=== PATIENT | male | born 1950 | race Caucasian/White ===

== ENCOUNTER 2017-01-14 08:09 | Emergency (ER) | payer BC, OTHER ==
[~2017-01-14] VITALS: Ht 172.7 cm; Wt 76.2 kg
[2017-01-14] VITALS (7 sets, daily range): BP systolic 111–128; BP diastolic 55–62; PULSE 66–82; TEMP 37.1–37.4; O2SAT 93–98; Ht 172.7 cm; Wt 76.2 kg
[~2017-01-14 08:09] MED LIST: ASPCH81X PO; FLUO0.0543 TOP; IBUP-1050 PO; LEVO50TA PO; LISI-461 PO; METO25TA3 PO; ROSU20TA PO; SILD100T PO
[2017-01-14] MEDS ORDERED: LEVO25TA5 PO (08:33)
[2017-01-14] MEDS ORDERED: TPRSR/25 PO (08:33)
[2017-01-14 08:56] LABS: BASO % 0.2 %; BASO ABS # 0.01 K/uL (0-0.2); COMPLETE YES; EOS % 0.9 %; HEMATOCRIT 48.1 % (42-52); IG% 0.2 %; LYMPH % 8.5 %; LYMPH ABS # 0.55 K/uL (1.2-3.4); MEAN CELL VOLUME 85.6 fL (80-100); MEAN CORPUSCULAR HEMOGLOBIN 29.7 pg (25-34); MEAN CORPUSCULAR HGB CONC 34.7 g/dl (32-36); MEAN PLATELET VOLUME 9.4 fL (7.4-10.4); MONO % 10.6 %; NEUT % 79.6 %; PLATELET COUNT 235 K/uL (130-400); RED BLOOD COUNT 5.62 M/uL (4.7-6.1)
[2017-01-14 09:07] LABS: MANUAL MICROSCOPIC REQUIRED? NO; URINE APPEARANCE CLEAR (CLEAR); URINE BILIRUBIN NEG (NEG); URINE COLOR YELLOW; URINE NITRITE NEG (NEG); UROBILINOGEN NEG (NEG)
[2017-01-14 09:07] LABS: ALT/SGPT 28 U/L (12-78); BLOOD UREA NITROGEN 9 mg/dl (7-18); BUN/CREATININE RATIO 10.7 (10-20); CALCIUM 9.6 mg/dl (8.5-10.1); CARBON DIOXIDE 29 mmol/L (21-32); CHLORIDE 101 mmol/L (98-107); CREATININE 0.85 mg/dl (0.60-1.40); GLUCOSE 102 mg/dl (70-99); POTASSIUM 3.8 mmol/L (3.5-5.1); SODIUM 140 mmol/L (136-145)
[2017-01-14 09:08] LABS: REVIEW REQ? NO
[2017-01-14 09:10] LABS: ZZUR CULT IF INDIC CLEAN CATCH NO
[2017-01-14 09:12] LABS: ALB/GLOB RATIO 1.1 (0.9-2); ALKALINE PHOSPHATASE 83 U/L (45-117); AST/SGOT 22 U/L (15-37)
--- NOTE | 2017-01-14 09:12 | EMERGENCY ROOM VISIT NOTE ---
History First contact with patient: 08:15 Chief Complaint: CHEST PAIN Stated Complaint: CHEST PAIN Nursing Triage Summary: pt c/o burning in chest up to throat area. pt rteports hx of bypass surgery 2 years ago. feels sob and tired sx started yestereday. pt heaved a few times last night. pt reports he has cough he does not normally have nonproductive dry cough History of Present Illness The patient is a 67 year old male who presents to the Emergency Room via ALS ambulance with complaints of chest pain. The patient states the discomfort woke him at 3 AM. He states he felt a burning sensation in the center of his chest. He states he has felt generalized weakness and he has felt short of breath. He also has a nonproductive cough. He denies any abdominal pain, nausea, vomiting, numbness, tingling. The patient does have a history of CABG 2 years ago. He has not had a catheterization since then but has had normal stress test. The patient was given nitroglycerin and aspirin in the ambulance. His pain did improve. Review of Systems A 10 system review of systems was completed with positives and pertinent negatives listed in the HPI. Past Medical/Surgical History Medical Problems: (1) Chest pain (2) Chest tightness or pressure (3) Coronary artery disease (4) Polymyalgia rheumatica (5) Syncope Surgical Problems: (1) Hx of CABG Family History FH: CAD (coronary artery disease) Social History Smoking Status: Never Smoker Alcohol Use: occasionally Drug Use: none Marital Status: Housing Status: lives with family Occupation Status: employed Current/Historical Medications Scheduled Aspirin (Aspirin Chewable), 81 MG PO QPM Levothyroxine Sodium (Levothyroxine Sodium), 1 TAB PO QPM Lisinopril (Zestril), 5 MG PO QAM Metoprolol Succinate (Metoprolol Succinate ER), 1 TAB PO QAM Prednisone (Prednisone), 5 MG PO DAILY Rosuvastatin Calcium (Crestor), 1 TAB PO QPM Allergies Coded Allergies: No Known Allergies (Unverified , 03/16/15) Physical Exam Vital Signs Date Time Temp Pulse Resp B/P Pulse Ox O2 Delivery O2 Flow Rate FiO2 01/14/17 12:52 86 16 110/60 98 01/14/17 11:55 95 Room Air 01/14/17 11:04 74 14 112/60 95 01/14/17 09:50 76 18 124/59 01/14/17 08:46 86 01/14/17 08:15 97 Room Air 01/14/17 08:15 37.1 89 18 109/62 97 Room Air Physical Exam VITALS: Vitals are noted on the nurse's note and reviewed by myself. Vital signs stable. GENERAL: This is a 67 year old male, in no acute distress, nondiaphoretic, well- developed well-nourished. SKIN: The skin was without rashes, erythema, edema, or bruising. There is no tenting of the skin. Capillary reflex less than 2 seconds. HEAD: Normocephalic atraumatic. EARS: The external ears are normal in appearance. EYES: Pupils equal round and reactive to light and accommodation. Conjunctivae without injection, sclerae without icterus. Extraocular movements intact. NOSE: Patent, turbinates without inflammation or discharge. MOUTH: Mucous membranes moist. Tonsils are not enlarged. Pharynx without erythema or exudate. Uvula midline. Airway patent. Tongue does not deviate. NECK: Supple without nuchal rigidity. No lymphadenopathy. No thyromegaly. Cervical spine is nontender. No JVD. HEART: Regular rate and rhythm without murmurs gallops or rubs. LUNGS: Clear to auscultation bilaterally without wheezes, rales or rhonchi. No retractions or accessory muscle use. ABDOMEN: Positive bowel sounds x 4. Soft, nontender, without masses or organomegaly. MUSCULOSKELETAL: No muscle atrophy, erythema, or edema noted. Full range of motion in all extremities. Normal gait. Strength 5/5 throughout. NEURO: Patient was alert and oriented to person place and time. No focal neurological deficits. Medical Decision & Procedures ER Provider Diagnostic Interpretation: [~ rep ct add3]] CHEST CTA for PULMONARY ARTERIES CT DOSE: 292.47 mGy.cm HISTORY: Chest pain dyspnea TECHNIQUE: Multiaxial CT images of the chest were performed following the intravenous administration of contrast to evaluate the pulmonary arteries. Maximal intensity projection images were also obtained. COMPARISON STUDY: None. FINDINGS: There is a normal caliber thoracic aorta with no evidence for dissection. There is no evidence for pulmonary embolus. No pleural effusions. No pneumothorax. The liver and spleen are unremarkable. No mediastinal or hilar lymphadenopathy. The central airways are patent. The lungs are clear. Prior median sternotomy. IMPRESSION: No evidence for pulmonary embolus. . Lungs are clear. CHEST ONE VIEW PORTABLE CLINICAL HISTORY: chest pain dyspnea COMPARISON STUDY: 10/16/2015 FINDINGS: Prior median sternotomy. No evidence for cardiac enlargement. Diaphragms smooth. Lungs are clear. IMPRESSION: No acute process. Laboratory Results 01/14/17 07:47 Red Blood Count 5.62, Mean Corpuscular Volume 85.6, Mean Corpuscular Hemoglobin 29.7, Mean Corpuscular Hemoglobin Concent 34.7, Mean Platelet Volume 9.4, Neutrophils (%) (Auto) 79.6, Lymphocytes (%) (Auto) 8.5, Monocytes (%) (Auto) 10.6, Eosinophils (%) (Auto) 0.9, Basophils (%) (Auto) 0.2, Neutrophils # (Auto ) 5.18, Lymphocytes # (Auto) 0.55, Monocytes # (Auto) 0.69, Eosinophils # (Auto ) 0.06, Basophils # (Auto) 0.01 01/14/17 07:47 Test 01/14/17 07:47 01/14/17 08:26 01/14/17 09:00 White Blood Count 6.50 K/uL (4.8-10.8) Red Blood Count 5.62 M/uL (4.7-6.1) Hemoglobin 16.7 g/dL (14.0-18.0) Hematocrit 48.1 % (42-52) Mean Corpuscular Volume 85.6 fL (80-100) Mean Corpuscular Hemoglobin 29.7 pg (25-34) Mean Corpuscular Hemoglobin Concent 34.7 g/dl (32-36) Platelet Count 235 K/uL (130-400) Mean Platelet Volume 9.4 fL (7.4-10.4) Neutrophils (%) (Auto) 79.6 % Lymphocytes (%) (Auto) 8.5 % Monocytes (%) (Auto) 10.6 % Eosinophils (%) (Auto) 0.9 % Basophils (%) (Auto) 0.2 % Neutrophils # (Auto) 5.18 K/uL (1.4-6.5) Lymphocytes # (Auto) 0.55 K/uL (1.2-3.4) Monocytes # (Auto) 0.69 K/uL (0.11-0.59) Eosinophils # (Auto) 0.06 K/uL (0-0.5) Basophils # (Auto) 0.01 K/uL (0-0.2) RDW Standard Deviation 42.0 fL (36.4-46.3) RDW Coefficient of Variation 13.3 % (11.5-14.5) Immature Granulocyte % (Auto) 0.2 % Immature Granulocyte # (Auto) 0.01 K/uL (0.00-0.02) Prothrombin Time 10.4 SECONDS (9.0-12.0) Prothromb Time International Ratio 1.0 (0.9-1.1) Activated Partial Thromboplast Time 25.7 SECONDS (21.0-31.0) Partial Thromboplastin Ratio 1.0 D-Dimer 790 ug/L FEU (0-500) Anion Gap 10.0 mmol/L (3-11) Est Creatinine Clear Calc Drug Dose 81.6 ml/min Estimated GFR () 104.5 Estimated GFR (Non- 90.2 BUN/Creatinine Ratio 10.7 (10-20) Calcium Level 9.6 mg/dl (8.5-10.1) Total Bilirubin 1.7 mg/dl (0.2-1) Aspartate Amino Transf (AST/SGOT) 22 U/L (15-37) Alanine Aminotransferase (ALT/SGPT) 28 U/L (12-78) Alkaline Phosphatase 83 U/L (45-117) Total Protein 8.2 gm/dl (6.4-8.2) Albumin 4.2 gm/dl (3.4-5.0) Globulin 4.0 gm/dl (2.5-4.0) Albumin/Globulin Ratio 1.1 (0.9-2) Lipase 178 U/L (73-393) Influenza Type A Antigen Neg for Influ A (NEG) Influenza Type B Antigen Neg for Influ B (NEG) Urine Color YELLOW Urine Appearance CLEAR (CLEAR) Urine pH 7.0 (4.5-7.5) Urine Specific [place] 1.020 (1.000-1.030) Urine Protein NEG (NEG) Urine Glucose (UA) NEG (NEG) Urine Ketones TRACE (NEG) Urine Occult Blood NEG (NEG) Urine Nitrite NEG (NEG) Urine Bilirubin NEG (NEG) Urine Urobilinogen NEG (NEG) Urine Leukocyte Esterase NEG (NEG) Procedure 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 They maintained a normal sinus rhythm without ectopy. ECG Indication: chest pain Rate (beats per minute): 87 Rhythm: normal sinus Findings: nonspecific-ST abn Change: no significant change ED Course The patient was seen and examined. Previous visits were reviewed. The patient does not have a fever or leukocytosis. He does not have any significant electrolyte abnormalities. Troponin is not elevated. Lipase is not elevated. INR is 1.0. D-dimer was elevated. Urinalysis was negative. Influenza was negative. Given the shortness of breath, chest discomfort and elevated d-dimer, a CTA of the chest was obtained and was negative for pulmonary embolus Chest x-ray does not reveal any acute abnormality The patient presents to the emergency department with chest discomfort which she describes as burning in nature and woke him from sleep. The pain was relieved with nitroglycerin in route with ALS ambulance. The patient does have a history of CABG 2 years ago. He has had a normal stress test since then. The patient does have multiple risk factors. He would benefit from further evaluation and management in the hospital. I discussed the case with the [facility] hospitalist service and they will evaluate the patient. The patient was also seen and examined by who agrees with the assessment and treatment plan. Medical Decision DIFFERENTIAL DIAGNOSIS: Aortic dissection, myocarditis, pericarditis, cervical disc disease, costochondritis, herpes zoster, rib fracture, pleuritis, pneumonia , pulmonary embolus, tension pneumothorax, anxiety disorder, somatoform disorder , choledocholithiasis, status, esophagitis, esophageal spasm, esophageal reflux , esophageal rupture, pancreatitis, peptic ulcer disease, cardiac ischemia, ST elevation AL, acute coronary syndrome, arrhythmia, coronary artery vasospasm. vavular heart disease, coronary artery disease, among others. Impression Primary Impression: Substernal precordial chest pain Departure Information Referrals Ilana Munguia DO (PCP) Patient Instructions My [facility]
--- NOTE | 2017-01-14 09:17 | DIAGNOSTIC IMAGING REPORT ---
CHEST ONE VIEW PORTABLE CLINICAL HISTORY: chest pain dyspnea COMPARISON STUDY: 10/16/2015 FINDINGS: Prior median sternotomy. No evidence for cardiac enlargement. Diaphragms smooth. Lungs are clear. IMPRESSION: No acute process. Electronically signed by: Rigoberto Grayson M.D. 01/14/2017 9:16 AM Dictated Date/Time: 01/14/2017 9:16 AM
[2017-01-14 09:41] LABS: PROTHROMBIN TIME (PATIENT) 10.4 SECONDS (9.0-12.0)
[2017-01-14] MEDS ORDERED: OPTIRAY 320 IV PRN (10:00)
--- NOTE | 2017-01-14 11:01 | DIAGNOSTIC IMAGING REPORT ---
CHEST CTA for PULMONARY ARTERIES CT DOSE: 292.47 mGy.cm HISTORY: Chest pain dyspnea TECHNIQUE: Multiaxial CT images of the chest were performed following the intravenous administration of contrast to evaluate the pulmonary arteries. Maximal intensity projection images were also obtained. COMPARISON STUDY: None. FINDINGS: There is a normal caliber thoracic aorta with no evidence for dissection. There is no evidence for pulmonary embolus. No pleural effusions. No pneumothorax. The liver and spleen are unremarkable. No mediastinal or hilar lymphadenopathy. The central airways are patent. The lungs are clear. Prior median sternotomy. IMPRESSION: No evidence for pulmonary embolus. . Lungs are clear. Electronically signed by: Rigoberto Graysno M.D. 01/14/2017 10:59 AM Dictated Date/Time: 01/14/2017 10:56 AM
[2017-01-14] MEDS ORDERED: POLYETHYLENE (MIRALAX) 17 GM PACK PO PRN (13:15)
[2017-01-14] MEDS ORDERED: ACETAMINOPHEN 325 MG TAB PO PRN (13:15)
[2017-01-14] MEDS ORDERED: ONDANSETRON INJ 2 MG/ML 2 ML VIAL IV PRN (13:15)
[2017-01-14] MEDS ORDERED: MAGNESIUM HYDROXIDE SUSP 30 ML UDC PO PRN (13:15)
[2017-01-14] MEDS ORDERED: ALUMINUM/MAGNESIUM/SIMETH (MAALOX MAX) 30 ML UDC PO PRN (13:15)
[2017-01-14] MEDS ORDERED: NITROGLYCERIN 0.4 MG SL PER TAB CHARGE SL PRN (13:15)
[2017-01-14 15:49] LABS: CKMB/CK RATIO 1.4 (0-3.0)
--- NOTE | 2017-01-14 15:52 | EMERGENCY ROOM VISIT NOTE ---
ED Visit Note First contact with patient: 08:15 I have personally seen and evaluated the patient with the PA. I agree with the diagnosis and management decisions and have been personally involved in the case. Please see Melisa Cesar PA-C's notes for further details of the history, physical and visit.
[2017-01-14] MEDS ORDERED: IV FLUIDS COMPLETED PRN (16:00)
--- NOTE | 2017-01-14 16:14 | History and Physical ---
History & Physical Date & Time of Service: Jan 14, 2017 at 16:09 Chief Complaint: Chest Pain Primary Care Physician: Ilana Munguia DO History of Present Illness Source: patient, family ( and daughters x 2) Mr. Perrin is a 67 y/o male with PMHx of CAD S/P CABG x 3 (2014), Hypothyroidism , and Polymyalgia Rheumatica who presents to the ED complaining of sudden onset CP that started at 0300. Patient was asleep in the discomfort woke him at 0300. The chest pain is located in the center of his chest and describes the sensation as burning and hot. He states this pain also radiated up into his neck. With this discomfort he does express some intermittent shortness of breath. He does not report any aggravating factors. Symptoms completely resolved with nitroglycerin and ASA given by EMS prior to arrival. Associated generalized weakness, nonproductive cough, and dry heaves overnight. Reports some diaphoresis last night which has resolved. Patient states that he normally does not have issues with acid reflux. He denies fever/chills, nausea/vomiting , abdominal pain, dysuria, constipation/diarrhea, or melena/hematochezia. Last stress test in September 2015 that did not show ischemic changes but mentions possible hypokinesis to akinesis of the mid inferior wall at rest and with stress. Patient states he normally does not have anginal pain. Patient is currently being treated for PMR and thinks some of this weakness could be related to that. However his presenting symptoms prior to CABG was that of fatigue largely with exertion. He has not undergone further catheterization since his CABG procedure. In the ED, he is afebrile without leukocytosis. EKG with normal sinus rhythm with Q waves in the anterior leads which have been present on previous EKGs. Initial troponin are negative. CTA of the chest without evidence of pulmonary embolism and lungs are clear without consolidation. Patient will be admitted to telemetry for CP rule out. Cardiology will be consult for possible need for stress testing versus need for catheterization in the future. Family History FH: CAD (coronary artery disease) FATHER Hypertension DAUGHTER Multiple Sclerosis SISTER Social History Smoking Status: Never Smoker Alcohol Use: socially Drug Use: none Marital Status: Housing status: lives with family Occupational Status: retired Multi-Drug Resistant Organisms History of MDRO: No Allergies Coded Allergies: No Known Allergies (Unverified , 03/16/15) Home Medications Scheduled Aspirin (Aspirin Chewable), 81 MG PO QPM Levothyroxine Sodium (Levothyroxine Sodium), 1 TAB PO QPM Lisinopril (Zestril), 5 MG PO QAM Metoprolol Succinate (Metoprolol Succinate ER), 1 TAB PO QAM Prednisone (Prednisone), 5 MG PO DAILY Rosuvastatin Calcium (Crestor), 1 TAB PO QPM Review of Systems Constitutional: + fatigue, + sweats (last night (resolved)), No chills, No fever Eyes: No worsening of vision ENT: No nasal symptoms, No sore throat, No trouble swallowing Respiratory: + shortness of breath (associated with CP (resolved)), No cough Cardiovascular: + chest pain ("burning" "hot" (resolved since NTG)), No edema, No palpitations Abdomen: No constipation, No diarrhea, No nausea, No pain, No vomiting Musculoskeletal: No calf pain, No swelling Genitourinary - Male: No dysuria Neurologic: No vertigo Hematologic / Lymphatic: No abnormal bleeding/bruising, No clotting problems Integumentary: No rash Physical Exam Vital Signs Date Time Temp Pulse Resp B/P Pulse Ox O2 Delivery O2 Flow Rate FiO2 01/14/17 15:20 72 18 128/60 97 Room Air 01/14/17 14:32 37.1 82 119/62 98 Room Air 01/14/17 14:20 80 16 121/67 98 01/14/17 12:52 86 16 110/60 98 01/14/17 11:55 95 Room Air 01/14/17 11:04 74 14 112/60 95 01/14/17 09:50 76 18 124/59 01/14/17 08:46 86 01/14/17 08:15 97 Room Air 01/14/17 08:15 37.1 89 18 109/62 97 Room Air General Appearance: WD/WN, no apparent distress Head: normocephalic, atraumatic Eyes: PERRL, sclerae normal ENT: hearing grossly normal Neck: supple, no JVD, trachea midline Respiratory/Chest: lungs clear, normal breath sounds, no respiratory distress, no accessory muscle use Cardiovascular: regular rate, rhythm, no gallop, no murmur Abdomen/GI: normal bowel sounds, non tender, soft Back: normal inspection, no CVA tenderness Extremities/Musculoskelatal: no calf tenderness, no pedal edema Neurologic/Psych: alert, oriented x 3 Skin: normal color, warm/dry Diagnostics Laboratory Results Results Past 24 Hours Test 01/14/17 07:47 01/14/17 08:26 01/14/17 09:00 01/14/17 15:04 Range/Units White Blood Count 6.50 4.8-10.8 K/uL Red Blood Count 5.62 4.7-6.1 M/uL Hemoglobin 16.7 14.0-18.0 g/dL Hematocrit 48.1 42-52 % Mean Corpuscular Volume 85.6 80-100 fL Mean Corpuscular Hemoglobin 29.7 25-34 pg Mean Corpuscular Hemoglobin Concent 34.7 32-36 g/dl Platelet Count 235 130-400 K/uL Mean Platelet Volume 9.4 7.4-10.4 fL Neutrophils (%) (Auto) 79.6 % Lymphocytes (%) (Auto) 8.5 % Monocytes (%) (Auto) 10.6 % Eosinophils (%) (Auto) 0.9 % Basophils (%) (Auto) 0.2 % Neutrophils # (Auto) 5.18 1.4-6.5 K/uL Lymphocytes # (Auto) 0.55 1.2-3.4 K/uL Monocytes # (Auto) 0.69 0.11-0.59 K/uL Eosinophils # (Auto) 0.06 0-0.5 K/uL Basophils # (Auto) 0.01 0-0.2 K/uL RDW Standard Deviation 42.0 36.4-46.3 fL RDW Coefficient of Variation 13.3 11.5-14.5 % Immature Granulocyte % (Auto) 0.2 % Immature Granulocyte # (Auto) 0.01 0.00-0.02 K/uL Prothrombin Time 10.4 9.0-12.0 SECONDS Prothromb Time International Ratio 1.0 0.9-1.1 Activated Partial Thromboplast Time 25.7 21.0-31.0 SECONDS Partial Thromboplastin Ratio 1.0 D-Dimer 790 0-500 ug/L FEU Sodium Level 140 136-145 mmol/L Potassium Level 3.8 3.5-5.1 mmol/L Chloride Level 101 98-107 mmol/L Carbon Dioxide Level 29 21-32 mmol/L Anion Gap 10.0 3-11 mmol/L Blood Urea Nitrogen 9 7-18 mg/dl Creatinine 0.85 0.60-1.40 mg/dl Est Creatinine Clear Calc Drug Dose 81.6 ml/min Estimated GFR () 104.5 Estimated GFR (Non- 90.2 BUN/Creatinine Ratio 10.7 10-20 Random Glucose 102 70-99 mg/dl Calcium Level 9.6 8.5-10.1 mg/dl Total Bilirubin 1.7 0.2-1 mg/dl Aspartate Amino Transf (AST/SGOT) 22 15-37 U/L Alanine Aminotransferase (ALT/SGPT) 28 12-78 U/L Alkaline Phosphatase 83 45-117 U/L Troponin I < 0.015 < 0.015 0-0.045 ng/ml Total Protein 8.2 6.4-8.2 gm/dl Albumin 4.2 3.4-5.0 gm/dl Globulin 4.0 2.5-4.0 gm/dl Albumin/Globulin Ratio 1.1 0.9-2 Lipase 178 73-393 U/L Influenza Type A Antigen Neg for Influ A NEG Influenza Type B Antigen Neg for Influ B NEG Urine Color YELLOW Urine Appearance CLEAR CLEAR Urine pH 7.0 4.5-7.5 Urine Specific [place] 1.020 1.000-1.030 Urine Protein NEG NEG Urine Glucose (UA) NEG NEG Urine Ketones TRACE NEG Urine Occult Blood NEG NEG Urine Nitrite NEG NEG Urine Bilirubin NEG NEG Urine Urobilinogen NEG NEG Urine Leukocyte Esterase NEG NEG Total Creatine Kinase 42 39-308 U/L Creatine Kinase MB 0.6 0.5-3.6 ng/ml Creatine Kinase MB Ratio 1.4 0-3.0 Diagnostic Radiology CHEST ONE VIEW PORTABLE CLINICAL HISTORY: chest pain dyspnea COMPARISON STUDY: 10/16/2015 FINDINGS: Prior median sternotomy. No evidence for cardiac enlargement. Diaphragms smooth. Lungs are clear. IMPRESSION: No acute process. CHEST CTA for PULMONARY ARTERIES CT DOSE: 292.47 mGy.cm HISTORY: Chest pain dyspnea TECHNIQUE: Multiaxial CT images of the chest were performed following the intravenous administration of contrast to evaluate the pulmonary arteries. Maximal intensity projection images were also obtained. COMPARISON STUDY: None. FINDINGS: There is a normal caliber thoracic aorta with no evidence for dissection. There is no evidence for pulmonary embolus. No pleural effusions. No pneumothorax. The liver and spleen are unremarkable. No mediastinal or hilar lymphadenopathy. The central airways are patent. The lungs are clear. Prior median sternotomy. IMPRESSION: No evidence for pulmonary embolus. . Lungs are clear. EKG Normal sinus rhythm Cannot rule out Anterior infarct , age undetermined Abnormal ECG When compared with ECG of 16-OCT-2015 11:04, No significant change was found Impression Assessment and Plan Mr. Perrin is a 67 y/o male with PMHx of CAD S/P CABG x 3, Hypothyroidism, and Polymyalgia Rheumatica who presents to the ED complaining of sudden onset CP that started at 0300. Chest Pain: GI Component vs Anginal vs ACS - Serial cardiac enzymes - Nitroglycerin 0.4 mg SL PRN - Stress test is ordered - Consult cardiology - follows with Dr. Spencer -- Recommendations for stress testing versus need for catheterization the future -- Prior to CABG patient's only symptom was largely fatigue with exertion - with stress testing confirming LAD ischemia -- Patient with multiple vessel disease with small non-dominant RCA -- Stress test (Sep 2015) - no ischemic changes but findings of possible hypokinesis to akinesis of mid inferior wall at rest and with stress CAD S/P CABG x 3 (2014): - ASA 81 mg daily - Lisinopril 5 mg daily - Metoprolol succinate 25 mg daily - Crestor 20 mg daily Hypothyroidism: - Synthroid 25 mcg daily Polymyalgia Rheumatica: - Prednisone 5 mg daily DVT Prophylaxis: - RAMONA/SCDs - Ambulation Code Status: FULL RESUSCITATION Disposition: Return home likely tomorrow Level of Care Telemetry Advanced Directives Existing Living Will: No Existing Power of Delivery Specialist: No Resuscitation Status FULL RESUSCITATION VTE Prophylaxis VTE Risk Assessment Done? Y/N: Yes Risk Level: Moderate Given or contraindicated: T.E.D. Stockings, SCD's
[2017-01-14] MEDS ORDERED: PRD5 PO (16:36)
--- NOTE | 2017-01-14 16:37 | History and Physical ---
History & Physical Date of Service Jan 14, 2017. History & Physical pt seen and examed, d/w PA about gonzalez points of dignosis and care plan, agreed current management, for details please referral to PA's note S: Was having chest pain this morning, resolved on the way to the hospital after 2 time nitroglycerin, no any chest pain when I see him Review of system otherwise not remarkable O: VS reviewed, stable, pleasant, NAD Lungs: Anterior chest wall has well-healing scar from history of CABG, decreased breathing sound, no respiratory distress, no accessory muscle use Cardiovascular: regular rate, rhythm, no edema, normal peripheral pulses Abdomen / GI: normal bowel sounds, non tender, soft Extremities: no calf tenderness, no pedal edema Neurologic/Psychiatric: alert, normal mood/affect, oriented x 3, CNII-XII intact All labs, images, reviewed 67 year old male with burning sensation in the center of his chest, associated with generalized weakness and he has felt short of breath. history of CABG 2 years ago. He has not had a catheterization since then but has had normal stress test in last September which was negative. Talked to the per diem clerk, check cardiac enzyme troponin 2 set, Will depend on next set of cardiac enzyme and troponin, may consider stress test , or cardiac cath if cardiac enzyme troponin is negative Possible do not need to have another stress test because of his recent stress test was last September which was negative, I start Protonix because of burning sensation and possible GERD
[2017-01-14] MEDS ORDERED: PANTOprazole SOD 40 MG TAB PO ONE (17:00)
--- NOTE | 2017-01-14 18:05 | CARDIOLOGY CONSULTATION ---
DATE OF CONSULTATION: 01/14/2017 REFERRING PHYSICIAN: Marcellus Pruitt MD HISTORY OF PRESENT ILLNESS: Mr. Ras Perrin is a 67-year-old gentleman with a history of coronary artery disease, having previously undergone coronary artery bypass grafting in 2014. The patient stated that earlier this evening at around 3:00 a.m., he was awoken from sleep with a burning sensation in his chest. He is very clear that this was not a pain but more a sense of indigestion. It was associated with a sense of nausea and the patient did have dry heaves for some time after its onset. There was some associated diaphoresis. He did state that at times, he felt somewhat short of breath but not markedly so. The discomfort itself did not seem to radiate and generally involved the precordium and epigastric area. There was only mild associated dizziness which was not progressive in nature. There was no syncope involved. The patient did not report a sense of palpitations or rapid heartbeats during this episode. He had nitroglycerin at home but did not administer any. He did notify EMS after several hours of discomfort. Upon administration of nitroglycerin, the symptoms improved and eventually abated in the Emergency Room of [facility]. He has not had any recurrence of these symptoms since admission. He does recall a sense of chest discomfort described more as a pressure sensation, leading up to his stress testing in 2014. This morning, symptoms were distinct from those present at that time. In general, he is an active individual who is performing routine tasks around his house. He is able to ambulate stairs and walk approximately 2 miles on occasion without limiting symptoms. He has not had to reduce his activity recently due to dyspnea or chest discomfort. PAST MEDICAL HISTORY: 1. Significant for aforementioned coronary artery disease. The patient underwent 3-vessel coronary artery bypass grafting in [facility] in March of 2015. This involved a NICHOLAS to the LAD, saphenous vein graft to an OM1 and a saphenous vein graft to the PDA. 2. Hyperlipidemia. 3. Hypertension. 4. Polymyalgia rheumatica, currently on steroid therapy. PAST SURGICAL HISTORY: Significant for the aforementioned coronary artery bypass grafting. OUTPATIENT MEDICATIONS: Include aspirin, vitamin D supplementation, levothyroxine, lisinopril, metoprolol, rosuvastatin and Viagra on a p.r.n. basis. MEDICAL ALLERGIES: No known medical allergies. FAMILY HISTORY: Significant for premature coronary disease in his father. 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 He is not currently using tobacco. He does drink alcohol on occasion. REVIEW OF SYSTEMS: A complete 10-system review of systems was performed and the pertinent positives are noted in the history of present illness. He does not report any recent constitutional symptoms such as fevers or chills, although he has had some upper respiratory illnesses over the course of the winter. He has not reported any change in his weight. He has not developed any lower extremity edema. He is not aware of any palpitations. He claims to be compliant with his medical therapy. PHYSICAL EXAMINATION: GENERAL: The patient did not appear to have any acute distress. He was pleasant individual who was alert and oriented. His mood and affect appeared normal. He answered all questions appropriately. CURRENT VITAL SIGNS: Include blood pressure 128/60, a pulse of 72. HEENT: Sclerae are anicteric. His pupils are equal and reactive to light and accommodation. Extraocular movements were intact. NECK: Palpation of submandibular region did not reveal any significant lymphadenopathy. The carotids are palpable bilaterally. There are no bruits on auscultation. I do not appreciate any jugular venous distention. Thyroid is not enlarged. LUNGS: Auscultation of both lung arias reveals them to be clear. There were no rales, wheeze or rhonchi. He had good respiratory effort without use of accessory muscles. CARDIAC: Revealed him to be in irregular rhythm. There were no murmurs appreciated on exam. S1, S2 appear to be normal. PMI is not markedly displaced on palpation. ABDOMEN: Soft and nontender. EXTREMITIES: Evaluation of both wrists reveal radial pulses that were equal in intensity. There was no evidence of cyanosis or clubbing. Evaluation of the lower extremities did not reveal any significant peripheral edema. LABORATORY STUDIES: Obtained since admission include a sodium 140, potassium of 3.8, BUN was 9, creatinine was 0.8. Serial cardiac biomarkers are all less than the detectable limit. White cell count was 6.5, hemoglobin was 16.7, platelet count was 235. A 12-lead EKG was obtained at the time of admission, which revealed a sinus rhythm without significant ST or T-wave changes. The patient's medical record was reviewed. He did have a stress echocardiogram subsequent to his bypass surgery in September of 2015. This test did not suggest the presence of any inducible ischemia. ASSESSMENT AND PLAN: Chest pain. This appears to be noncardiac in nature, given the extended duration of his symptoms without elevation in cardiac biomarkers. It is also notable that these symptoms are distinct from those experienced prior to his bypass grafting. The patient is on a good outpatient medical regimen for secondary prevention of recurrent coronary artery disease. At this point, we could consider repeat risk stratification with exercise stress testing or defer that currently, given his good exercise tolerance and absence of exertional symptoms. At this point, there does not seem to be any need for additional medical therapy. I will continue him on his outpatient medical regimen and he could follow up as an outpatient with his primary [facility] we[facility], Dr. Spencer.
[2017-01-14] MEDS ORDERED: ROSUVASTATIN CALCIUM 20 MG TAB PO SCH (21:00)
[2017-01-14] MEDS ORDERED: ASPIRIN 81 MG ECTAB PO SCH (21:00)
[2017-01-15 03:07] VITALS: BP 108/60; PULSE 57; TEMP 36.8; O2SAT 93
[2017-01-15 04:00] VITALS: O2SAT 93
[2017-01-15 05:55] LABS: HEMATOCRIT 41.2 % (42-52); MEAN CELL VOLUME 86.9 fL (80-100); MEAN CORPUSCULAR HGB CONC 34.5 g/dl (32-36); MEAN PLATELET VOLUME 9.3 fL (7.4-10.4); PLATELET COUNT 169 K/uL (130-400); RED BLOOD COUNT 4.74 M/uL (4.7-6.1); WHITE BLOOD COUNT 4.17 K/uL (4.8-10.8)
[2017-01-15] MEDS ORDERED: LEVOTHYROXINE 25 MCG TAB PO SCH (06:00)
[2017-01-15 06:29] LABS: BUN/CREATININE RATIO 12.8 (10-20); CALCIUM 8.2 mg/dl (8.5-10.1); CREATININE 0.74 mg/dl (0.60-1.40); MAGNESIUM 1.8 mg/dl (1.8-2.4); POTASSIUM 3.7 mmol/L (3.5-5.1)
[2017-01-15 06:39] LABS: CHOLESTEROL/HDL RATIO 2.2; THYROID STIMULATING HORMONE 0.158 uIu/ml (0.300-4.500)
[2017-01-15 07:08] VITALS: BP 116/62; PULSE 65; TEMP 36.8; O2SAT 95
[2017-01-15] MEDS ORDERED: METOPROLOL SUCC 25MG EXT REL TAB PO SCH (09:00)
[2017-01-15] MEDS ORDERED: PANTOprazole SOD 40 MG TAB PO SCH (09:00)
[2017-01-15] MEDS ORDERED: LISINOPRIL 10 MG TAB PO SCH (09:00)
--- NOTE | 2017-01-15 10:38 | CARDIOLOGY PROGRESS NOTE ---
DATE: 01/15/2017 TIME: 10:11 a.m. SUBJECTIVE: Mr. Small has not had any further chest pain. Denies shortness of breath, syncope, near syncope, or palpitations. Today's visit was after his stress echo. He had no chest pain while exercising. The stress echo was terminated at approximately 6 minutes and 30 seconds as he was concerned that his shoes may fall off and therefore, it was terminated due to safety concerns. He did attaine target heart rate. OBJECTIVE: VITAL SIGNS: Temperature 36.8 degrees, heart rate 65 beats per minute, respiratory rate 20, blood pressure 116/62 mmHg, and oxygen saturation 95% on room air. GENERAL: No acute distress. He is alert. NECK: No appreciable JVD. CARDIAC EXAM: No ventricular heave, regular, normal S1 and S2. No audible murmurs, rubs or gallops. LUNGS: Clear to auscultation bilaterally without wheezes, rales or rhonchi. ABDOMEN: Soft, nontender, and nondistended. Normoactive bowel sounds. EXTREMITIES: No cyanosis or pitting edema. No palpable cords. PSYCHIATRIC: Affect appears appropriate. MEDICATIONS: Include aspirin 81 mg daily, lisinopril 5 mg daily, metoprolol succinate 25 mg daily, Protonix 40 mg daily, prednisone 5 mg daily, and rosuvastatin 20 mg daily. LABORATORY DATA: White blood cell count is 4.17, hemoglobin 14.2, and platelets 169. ESR 13. Sodium 139, potassium 3.7, BUN 10, creatinine 0.74, and magnesium 1.8. TSH 0.158. LDL 34, HDL 43, and triglycerides 78. ECG performed this morning at 06:37 a.m., sinus rhythm at 64 beats per minute. Normal ECG. Chest CT angiogram report reviewed from 01/14/2017: No evidence of pulmonary embolism. No evidence of aortic dissection per report. Stress echo results preliminary review: Stress echo images were personally reviewed with the patient. Stress echo images were negative for ischemia at target heart rate. No significant valvular abnormalities visualized. Formal review to follow. ASSESSMENT AND PLAN: 1. Noncardiac chest pain: Had several hours of chest discomfort with negative cardiac enzymes. He also had a negative exercise stress echo today and states that his chest pain was different from prior angina. No further ischemic evaluation recommended at this time. Etiology of chest discomfort can be evaluated further by the hospitalist service or by PCP. He described it as burning sensation and therefore could consider GI etiology. Could consider proton pump inhibitor upon discharge. 2. Coronary artery disease, status post coronary artery bypass graft x3: Continue antiplatelet therapy, high intensity statin therapy, beta dar, and SHARA inhibitor. Call 911 for angina. Stress echo today was unremarkable. 3. Hypertension: Blood pressure adequately controlled. Continue outpatient regimen. 4. Disposition: Can follow up as scheduled with cardiology.
[2017-01-15] MEDS ORDERED: PRT40 PO (10:41)
--- NOTE | 2017-01-15 10:46 | Discharge Instructions ---
Discharge Instructions Date of Service Jan 15, 2017. Admission Reason for Admission: Chest Pain Discharge Discharge Diagnosis / Problem: Chest pain, non-cardiac Discharge Goals Goal(s): Decrease discomfort, Improve disease control Activity Recommendations Activity Limitations: resume your previous activity Lifting Limitations: none Exercise/Sports Limitations: as tolerated May Resume Sexual Activity: when tolerated Shower/Bathe: no limitations Driving or Machine Use: no limitations . Instructions / Follow-Up Instructions / Follow-Up Medications: no changes to cardiac medications - PROTONIX: take once a day, best to take 30 minutes prior to morning meal to optimize effects, this reduces stomach acid, try for 14 days to see if it prevents recurrence of symptoms In summary, there is no evidence of cardiac ischemia with normal EKG's and negative cardiac enzymes x 3 sets. You had a negative exercise stress echocardiogram today. Please follow up with Dr. Spencer as previously scheduled. Possible GERD: will try Protonix for 2 weeks to see if it prevents any recurrence of chest symptoms FOLLOW UP - Dr. Garcia in one week, call to make an appointment - Dr. Spencer as previously scheduled Current Hospital Diet Patient's current hospital diet: AHA Diet (Heart Healthy) Discharge Diet Recommended Diet: AHA Diet (Heart Healthy) Pending Studies Studies pending at discharge: no Laboratory Results Lipid Panel Test 01/15/17 05:18 Range/Units Triglycerides Level 78 0-150 mg/dl Cholesterol Level 93 0-200 mg/dl HDL Cholesterol 43 mg/dl Cholesterol/HDL Ratio 2.2 LDL Cholesterol, Calculated 34 mg/dl Medical Emergencies . Who to Call and When: Medical Emergencies: If at any time you feel your situation is an emergency, please call 911 immediately. . Non-Emergent Contact Non-Emergency issues call your: Primary Care Provider Call Non-Emergent contact if: your pain is worsening, you have any medication questions . . "Provider Documentation" section prepared by Carlos Pedraza. VTE Core Measure Inpt VTE Proph given/why not?: [facility] [place] Drug Monitoring Program Search Results: no issues identified
[2017-01-15 10:54] VITALS: BP 116/62; PULSE 65; TEMP 36.8; O2SAT 95
[2017-01-15] MEDS ORDERED: PERFLUTREN LIPID MICROSPHERE (DEFINITY) IV ONE (11:06)
--- NOTE | 2017-01-15 13:31 | Discharge Summary ---
Discharge Summary Date of Service Jan 15, 2017. Discharge Summary Admission Date: Jan 14, 2017 at 13:25 Discharge Date: Jan 15, 2017 Discharge Disposition: Home Principal Diagnosis: Chest pain, suspect GERD Problems/Secondary Diagnoses: h/o CAD, s/p CABG Hyperlipidemia Procedures: Exercise stress echocardiogram - negative for ischemia Consultations: Cardiology Medication Reconciliation New Medications: Pantoprazole (Pantoprazole Sodium) 40 Mg Tab 40 MG PO QAM, #14 TAB 1 Refill Continued Medications: Aspirin (Aspirin Chewable) 81 Mg Chew 81 MG PO QPM Levothyroxine Sodium (Levothyroxine Sodium) 25 Mcg Tab 1 TAB PO QPM for 90 Days, TAB 3 Refills Lisinopril (Zestril) 10 Mg Tab 5 MG PO QAM Metoprolol Succinate (Metoprolol Succinate ER) 25 Mg Tabcr 1 TAB PO QAM Prednisone (Prednisone) 5 Mg Tab 5 MG PO DAILY Rosuvastatin Calcium (Crestor) 20 Mg Tab 1 TAB PO QPM Discharge Exam Patient without further chest pain, feeling well overall. Had exercise stress echo this AM, no chest pain during test. Discussed with patient and his , plan to treat possible GERD and d/c to home. Review of Systems: Constitutional: No chills, No fatigue, No fever, No problem reported, No sweats, No weakness, No weight loss Eyes: No diplopia, No discharge, No eye pain, No problem reported, No redness, No worsening of vision ENT: No dental problems, No hearing loss, No nasal symptoms, No problem reported, No sore throat, No tinnitus, No trouble swallowing, No unusual epistaxis Respiratory: No cough, No dyspnea at rest, No dyspnea on exertion, No hemoptysis, No problem reported, No shortness of breath, No sputum, No wheezing Cardiovascular: No PND, No chest pain, No claudication, No edema, No orthopnea, No palpitations, No problem reported Abdomen: No GI bleeding, No constipation, No diarrhea, No nausea, No pain, No problem reported, No vomiting Musculoskeletal: No calf pain, No joint pain, No muscle pain, No problem reported, No swelling Genitourinary - Male: No dysuria, No hematuria, No urinary frequency, No urinary urgency Neurologic: No balance problems, No memory loss, No numbness/tingling, No paralysis, No problem reported, No vertigo, No weakness Psychiatric: No anhedonism, No anxiety, No depression symptoms, No insomnia , No problem reported, No substance abuse Endocrine: No excessive thirst, No excessive urination, No fatigue, No problem reported Hematologic / Lymphatic: No abnormal bleeding/bruising, No clotting problems , No night sweats, No problem reported, No swollen lymph nodes Integumentary: No bleeding, No color change, No itch, No new/changing skin lesions, No problem reported, No rash Physical Exam: General Appearance: WD/WN, no apparent distress Eyes: normal inspection, EOMI, sclerae normal ENT: normal ENT inspection, hearing grossly normal, pharynx normal Neck: supple, no adenopathy, no JVD, trachea midline Respiratory/Chest: chest non-tender, lungs clear, normal breath sounds, no respiratory distress, no accessory muscle use Cardiovascular: regular rate, rhythm, no edema, no gallop, no JVD, no murmur , normal peripheral pulses Abdomen / GI: normal bowel sounds, non tender, soft, no organomegaly Extremities: normal inspection, no calf tenderness, normal capillary refill , no pedal edema, normal range of motion Neurologic/Psychiatric: health plan advisor II-XII nml as tested, no motor/sensory deficits , alert, normal mood/affect, normal reflexes, oriented x 3 Skin: normal color, warm/dry, no rash Lymphatic: no adenopathy Hospital Course Mr. Perrin is a 67 y/o male with PMHx of CAD S/P CABG x 3, Hypothyroidism, and Polymyalgia Rheumatica who presents to the ED complaining of sudden onset CP that started at 0300. Described as a burning sensation and patient pointed to sternum and showed that the pain trended down toward epigastric region. EKG normal x 2, enzymes negative x 3, normal exercise stress, negative CTA chest. will treat GERD with Protonix x 2 weeks, follow up with PCP in a week. Chest Pain: ACS and ischemia ruled out with negative stress test, will treat GERD with PPI negative stress echo today, troponin neg x 3, normal EKG x 2, no further chest pain since admission CTA negative for PE or infiltrate CAD S/P CABG x 3 (2014): - ASA 81 mg daily - Lisinopril 5 mg daily - Metoprolol succinate 25 mg daily - Crestor 20 mg daily no changes, appreciate cardiology consultation Hypothyroidism: - Synthroid 25 mcg daily Polymyalgia Rheumatica: - Prednisone 5 mg daily DVT Prophylaxis: - RAMONA/SCDs - Ambulation Total Time Spent: Less than 30 minutes This includes examination of the patient, discharge planning, medication reconciliation, and communication with other providers. Discharge Instructions Please refer to the electronic Patient Visit Report (Discharge Instructions) for additional information. Follow-Up Dr. Munguia in one week Dr. Spencer as previously scheduled Additional Copies To Ilana Munguia DO; Brice Spencer MD
--- NOTE | 2017-01-15 17:10 | EXERCISE STRESS ECHO ---
*NOTICE TO RECEIVING DEMOCRAT AGENCY This information is strictly Confidential and protected under [place] law. [place] law prohibits you from making any further disclosure of this information unless further disclosure is expressly permitted by the written consent of the person to whom it pertains or is authorized by law. A general authorization for the release of medical or other information is not sufficient for this purpose. Hospital accepts no responsibility if the information is made available to any other person, INCLUDING THE PATIENT. Interpretation Summary * Name: ALY ENNIS Study Date: 01/15/2017 08:27 AM BP: 142/76 mmHg * Patient Location: C.2E\S\E201\S\1 HR: 71 * : 1950 (M/d/yyyy) Gender: Male Height: 67 in * Age: 67 yrs Ethnicity: CA Weight: 167 lb * Ordering Physician: Rosa Brody * Referring Physician: Self, Referred * Performed By: Cynthia Epsinoza RDCS * * Reason For Study: CHEST PAIN * BSA: 1.9 m2 * History: CHEST PAIN * -- Conclusions -- * Stress Echo: * 1. Negative stress echo for ischemia at 95% MPHR. * 2. Negative exercise ECG for ischemia at 95% MPHR. * 3. No chest pain reported. * 4. Mildly hypertensive blood pressure response to exercise. * 5. No arrhythmia. * 6. Fair exercise tolerance. * 7. Technically difficult study, enhanced with IV Definity. * ECHO: * 1. Normal left ventricular size and systolic function. EF 55-60%. No regional wall motion abnormalities. Mild concentric left ventricular hypertrophy. Type 1 diastolic dysfunction. * 2. Mildly dilated right ventricle with normal systolic function. * 3. No significant valvular abnormalities visualized. * 4. Technically difficult study. * 5. Normal estimated right ventricular systolic pressure. Procedure Details * A contrast injection of Definity was performed to improve assessment of LV function. * Contrast was injected into an intravenous site in the left arm. * One vial of Definity ultrasound contrast was diluted in normal saline to a total volume of 10 ml. A total of '2' ml of solution was administered during imaging. * Lot # [id number] of Definity utilized for procedure. * Expiration date 1 MAR 18. * The attending nurse who injected the contrast agent was HA HOWARD RN. Left Ventricle * The left ventricle is normal in size. * There is mild concentric left ventricular hypertrophy. * Ejection Fraction = 55-60%. * Left ventricular systolic function is normal. * Resting wall motion: Normal. Stress wall motion: Appropriate increase in Left ventricular systolic function and decrease in cavity size. No stress induced segmental wall motion abnormalities. * The left ventricular ejection fraction increases normally with stress. The left ventricular end-systolic cavity size reduces post-stress (normal response). The left ventricular wall motion with stress is normal. Right Ventricle * Mildly dilated right ventricle with normal systolic function. Atria * The left atrial size is normal. * Right atrial size is normal. * There is no evidence of atrial septal defect, but resolution does not allow assessment for a patent foramen ovale. Mitral Valve * The mitral valve is grossly normal. * There is no mitral valve stenosis. * There is trace mitral regurgitation. Tricuspid Valve * The tricuspid valve is not well visualized, but is grossly normal. * There is no tricuspid stenosis. * There is trace tricuspid regurgitation. Aortic Valve * The aortic valve is normal in structure and function. * The aortic valve is trileaflet. * No hemodynamically significant valvular aortic stenosis. * Trace aortic regurgitation. Pulmonic Valve * The pulmonic valve is not well visualized. * Mild pulmonic valvular regurgitation. Great Vessels * The aortic root is normal size. * Mildly blunted pulmonary venous flow pattern. Pericardium * There is no pericardial effusion. Stress Parameters * NSR at 75 bpm. * Stress ECG: No ST changes. No arrhythmias. * No arrhythmia were noted with stress. * The stress portion of this study was personally supervised by the undersigned interpreting physician. * Rest heart rate was '71' BPM. * Rest blood pressure was '142/76' * Maximum heart rate achieved was 146 bpm. * Maximum heart rate was 95 % of maximum age-predicted heart rate. * Maximum blood pressure was '202/73' * Total exercise time was '6:29' * Maximum exercise MET level achieved was '7.70' METS * Maximum treadmill speed was '3.40' miles per hour. * Maximum treadmill elevation was '14,00'% grade. * Exercise was terminated due to 'ACHIEVING TARGET HR' * Exercise-induced hypertension. MMode 2D Measurements and Calculations IVSd 1.3 cm IVSs 1.6 cm LVIDd 4.0 cm LVIDs 2.7 cm LVPWd 1.2 cm LVPWs 1.7 cm IVS/LVPW 1.0 FS 33.1 % EDV(Teich) 69.7 ml ESV(Teich) 26.3 ml EF(Teich) 62.3 % EDV(cubed) 63.6 ml ESV(cubed) 19.0 ml EF(cubed) 70.1 % % IVS thick 30.6 % % LVPW thick 36.1 % LV mass(C)d 174.4 grams LV mass(C)dI 93.1 grams/m\S\2 LV mass(C)s 163.8 grams LV mass(C)sI 87.5 grams/m\S\2 SV(Teich) 43.4 ml SI(Teich) 23.2 ml/m\S\2 SV(cubed) 44.6 ml SI(cubed) 23.8 ml/m\S\2 Ao root diam 3.1 cm Ao root area 7.7 cm\S\2 LA dimension 4.2 cm LA/Ao 1.4 LVAd ap4 32.7 cm\S\2 LVLd ap4 8.3 cm EDV(MOD-sp4) 108.6 ml EDV(sp4-el) 110.1 ml LVAs ap4 20.0 cm\S\2 LVLs ap4 7.2 cm ESV(MOD-sp4) 49.2 ml ESV(sp4-el) 47.4 ml EF(MOD-sp4) 54.7 % EF(sp4-el) 56.9 % SV(MOD-sp4) 59.3 ml SI(MOD-sp4) 31.7 ml/m\S\2 SV(sp4-el) 62.6 ml SI(sp4-el) 33.5 ml/m\S\2 Doppler Measurements and Calculations MV E max stevo 61.4 cm/sec MV A max stevo 75.8 cm/sec MV E/A 0.81 MV dec time 0.23 sec Ao V2 max 70.6 cm/sec Ao max PG 2.0 mmHg Ao max PG (full) 0.33 mmHg LV V1 max PG 1.7 mmHg LV V1 max 64.4 cm/sec PI max stevo 177.6 cm/sec PI max PG 12.6 mmHg PI dec slope 151.7 cm/sec\S\2 PI P1/2t 342.9 msec TR max stevo 248.7 cm/sec
== END 2017-01-15 11:29 | disposition home or self-care (01) ==
LOC: ENRESERVTM → ENRESERVDT → EDBD 08:09 → C.EDB 08:10 → C.2E 13:25
PROVIDERS: ADMIT Hospitalist; ATTEND Internal Medicine
DX: R07.9 Chest pain, unspecified (principal); R06.00 Dyspnea, unspecified; Z95.1 Presence of aortocoronary bypass graft; E03.9 Hypothyroidism, unspecified; M35.3 Polymyalgia rheumatica; Z79.899 Other long term (current) drug therapy

== ENCOUNTER → 2017-02-15 | Outpatient (CLI) | payer BC ==
[~2017-02-15] MED LIST changes: -FLUO0.0543 TOP; -IBUP-1050 PO; +LEVO25TA5 PO; -LEVO50TA PO; -METO25TA3 PO; +PRD5 PO; +PRT40 PO; -SILD100T PO; +TPRSR/25 PO
--- NOTE | 2017-02-20 12:10 | CODING QUERY MEDICAL NECESSITY ---
SUPPORTING DIAGNOSIS NEEDED A supporting diagnosis is required for the test/procedure performed on this patient in order for us to be reimbursed by the patient's insurance. Please provide a supporting diagnosis for the following test/procedure listed below next to the test name along with your signature. *If there is no additional diagnosis for this patient that would support the following test/procedure please document that below next to the test/procedure. Test(s)/Procedure(s) that require a supporting diagnosis: DOS 02/15 * Bone Density Study DIAGNOSIS: Provider Signature: Date: Thank you Teresa Rodriguez Health Information Management Once completed, please kindly fax back to [phone] For questions please call [phone]
== END | disposition home or self-care (01) ==
LOC: C.MAMM 10:18
PROVIDERS: ATTEND Nurse Practitioner Family
DX: E55.9 Vitamin D deficiency, unspecified (principal); Z13.820 Encounter for screening for osteoporosis

== ENCOUNTER → 2017-08-20 | Outpatient (CLI) | payer BC, OTHER ==
[2017-08-20 12:30] LABS: BASO % 0.7 %; BASO ABS # 0.03 K/uL (0-0.2); COMPLETE YES; HEMATOCRIT 43.5 % (42-52); IG% 0.2 %; LYMPH % 34.7 %; LYMPH ABS # 1.56 K/uL (1.2-3.4); MEAN CELL VOLUME 87.5 fL (80-100); MEAN CORPUSCULAR HEMOGLOBIN 28.6 pg (25-34); MEAN CORPUSCULAR HGB CONC 32.6 g/dl (32-36); MEAN PLATELET VOLUME 9.3 fL (7.4-10.4); MONO % 12.7 %; NEUT % 49.7 %; PLATELET COUNT 269 K/uL (130-400); RED BLOOD COUNT 4.97 M/uL (4.7-6.1)
[2017-08-20 13:10] LABS: ALT/SGPT 27 U/L (12-78); BLOOD UREA NITROGEN 10 mg/dl (7-18); BUN/CREATININE RATIO 12.5 (10-20); CALCIUM 8.6 mg/dl (8.5-10.1); CARBON DIOXIDE 28 mmol/L (21-32); CHLORIDE 106 mmol/L (98-107); CHOLESTEROL 117 mg/dl (0-200); CREATININE 0.83 mg/dl (0.60-1.40); GLUCOSE 94 mg/dl (70-99); SODIUM 139 mmol/L (136-145)
[2017-08-20 13:20] LABS: ALKALINE PHOSPHATASE 70 U/L (45-117); AST/SGOT 22 U/L (15-37); CHOLESTEROL/HDL RATIO 2.3; HDL CHOLESTEROL 50 mg/dl; LDL CHOLESTEROL CALCULATED 57 mg/dl; TRIGLYCERIDES 48 mg/dl (0-150); VERY LOW DENSITY LIPOPROT CALC 10 mg/dl
== END | disposition home or self-care (01) ==
LOC: C.LABPBG 08:48
PROVIDERS: ATTEND Nurse Practitioner Family
DX: E78.00 Pure hypercholesterolemia, unspecified (principal); E88.81 Metabolic syndrome and other insulin resistance; E03.9 Hypothyroidism, unspecified; I25.10 Atherosclerotic heart disease of native coronary artery without angina pectoris; E55.9 Vitamin D deficiency, unspecified

== ENCOUNTER 2017-10-18 12:41 | Emergency (ER) | payer BC, OTHER ==
[~2017-10-18] VITALS: Ht 171.5 cm; Wt 74.9 kg
[2017-10-18 12:43] VITALS: TEMP 36.5; Ht 171.5 cm; Wt 74.9 kg
--- NOTE | 2017-10-18 13:03 | EMERGENCY ROOM VISIT NOTE ---
History Report prepared by Karena: Alva Celaya Under the Supervision of: Dr. Mahad Bardales D.O. First contact with patient: 12:43 Chief Complaint: CARDIAC ASSESSMENT Stated Complaint: CHEST DISCOMFORT History of Present Illness The patient is a 67 year old male who presents to the Emergency Room with complaints of intermittent chest discomfort beginning about six weeks ago. The patient states his pain feel like it is "under the bone" and like he was "punched in the chest". He denies any modifying or worsening factors. He denies increased pain with taking a deep breath. He denies any pain or swelling in legs , headache, shortness of breath, fever, back pain, or abdominal pain. He reports he has been taking his medication as prescribed. The patient has a history of a triple bypass and polymyalgia. When the patient had a triple bypass , his pain presented itself as a discomfort in his throat. He denies any tobacco use. Source of History: patient Onset: 6 weeks ago Position: chest Quality: other (discomfort) Timing: intermittent Associated Symptoms: No fevers, No headache, No SOB, No abdominal pain, No back pain Review of Systems See HPI for pertinent positives & negatives. A total of 10 systems reviewed and were otherwise negative. Past Medical & Surgical Medical Problems: (1) Chest pain (2) Chest tightness or pressure (3) Coronary artery disease (4) Polymyalgia rheumatica (5) Syncope Surgical Problems: (1) Hx of CABG Family History FH: CAD (coronary artery disease) FATHER Hypertension DAUGHTER Multiple Sclerosis SISTER Social History Smoking Status: Former Smoker Alcohol Use: occasionally Drug Use: none Marital Status: Housing Status: lives with family Occupation Status: retired Current/Historical Medications Scheduled Aspirin (Aspirin Chewable), 81 MG PO QPM Levothyroxine Sodium (Levothyroxine Sodium), 1 TAB PO QPM Lisinopril (Zestril), 5 MG PO QAM Metoprolol Succinate (Metoprolol Succinate ER), 1 TAB PO QAM Prednisone (Prednisone), 5 MG PO DAILY Rosuvastatin Calcium (Crestor), 1 TAB PO QPM Allergies Coded Allergies: No Known Allergies (Unverified , 10/18/17) Physical Exam Vital Signs Date Time Temp Pulse Resp B/P (MAP) Pulse Ox O2 Delivery O2 Flow Rate FiO2 10/18/17 14:57 61 18 145/76 100 Room Air 10/18/17 13:10 98 Room Air 10/18/17 13:04 98 Room Air 10/18/17 13:03 98 Room Air 10/18/17 12:54 65 10/18/17 12:43 36.5 73 20 142/85 97 Room Air Physical Exam GENERAL: Patient is awake, alert, and in no acute distress. Patient is resting comfortably and showing no signs of anxiety EYES: The conjunctivae are clear. The pupils are round and reactive. EARS, NOSE, MOUTH AND THROAT: The nose is without any evidence of any deformity. Mucous membranes are moist tongue is midline NECK: The neck is nontender and supple. RESPIRATORY: Normal respiratory effort is noted there is no evidence of wheezing rhonchi or rales CARDIOVASCULAR: Regular rate and rhythm noted there no murmurs rubs or gallops normal S1 normal S2 GASTROINTESTINAL: The abdomen is soft. Bowel sounds are present in all quadrants. Abdomen is nontender MUSCULOSKELETAL/EXTREMITIES: There is no evidence of gross deformity full range of motion is noted in the hips and shoulders SKIN: There is no obvious evidence of any rash. There are no petechiae, pallor or cyanosis noted. NEUROLOGIC: Patient is awake alert and oriented x3 strength is symmetric patellar reflexes are 2+ bilaterally Medical Decision & Procedures ER Provider Diagnostic Interpretation: Radiology results as stated below per my review and radiologist interpretation: CHEST ONE VIEW PORTABLE FINDINGS: There are median sternotomy wires and clips from bypass grafting. No pneumothorax or pleural effusion is present. There is no consolidation. Cardiomediastinal silhouette is normal. Pulmonary vascularity is normal. IMPRESSION: No acute cardiopulmonary findings. Electronically signed by: Miguel A Narvaez M.D. CT ANGIOGRAM OF THE CHEST FINDINGS: The heart is normal in size. There are coronary artery calcifications. No pathologically enlarged axillary mediastinal or hilar lymph nodes were visualized. There was no evidence of thoracic aortic dilatation. There were no pulmonary artery filling defects to indicate acute pulmonary embolism. No pleural effusions are visualized. There are dependent atelectatic changes. There are no areas of focal pulmonary consolidation to indicate a pneumonitis. IMPRESSION: 1. No evidence of acute pulmonary embolism 2. No evidence of focal pulmonary consolidation Electronically signed by: Maverick Triana M.D. Laboratory Results 10/18/17 12:56 Red Blood Count 5.17, Mean Corpuscular Volume 87.2, Mean Corpuscular Hemoglobin 30.0, Mean Corpuscular Hemoglobin Concent 34.4, Mean Platelet Volume 9.3, Neutrophils (%) (Auto) 61.6, Lymphocytes (%) (Auto) 26.1, Monocytes (%) (Auto) 10.3, Eosinophils (%) (Auto) 1.1, Basophils (%) (Auto) 0.7, Neutrophils # (Auto ) 3.30, Lymphocytes # (Auto) 1.40, Monocytes # (Auto) 0.55, Eosinophils # (Auto ) 0.06, Basophils # (Auto) 0.04 10/18/17 12:56 Test 10/18/17 12:56 10/18/17 13:02 White Blood Count 5.36 K/uL (4.8-10.8) Red Blood Count 5.17 M/uL (4.7-6.1) Hemoglobin 15.5 g/dL (14.0-18.0) Hematocrit 45.1 % (42-52) Mean Corpuscular Volume 87.2 fL (80-100) Mean Corpuscular Hemoglobin 30.0 pg (25-34) Mean Corpuscular Hemoglobin Concent 34.4 g/dl (32-36) Platelet Count 216 K/uL (130-400) Mean Platelet Volume 9.3 fL (7.4-10.4) Neutrophils (%) (Auto) 61.6 % Lymphocytes (%) (Auto) 26.1 % Monocytes (%) (Auto) 10.3 % Eosinophils (%) (Auto) 1.1 % Basophils (%) (Auto) 0.7 % Neutrophils # (Auto) 3.30 K/uL (1.4-6.5) Lymphocytes # (Auto) 1.40 K/uL (1.2-3.4) Monocytes # (Auto) 0.55 K/uL (0.11-0.59) Eosinophils # (Auto) 0.06 K/uL (0-0.5) Basophils # (Auto) 0.04 K/uL (0-0.2) RDW Standard Deviation 42.1 fL (36.4-46.3) RDW Coefficient of Variation 13.3 % (11.5-14.5) Immature Granulocyte % (Auto) 0.2 % Immature Granulocyte # (Auto) 0.01 K/uL (0.00-0.02) Prothrombin Time 10.8 SECONDS (9.0-12.0) Prothromb Time International Ratio 1.0 (0.9-1.1) Activated Partial Thromboplast Time 26.1 SECONDS (21.0-31.0) Partial Thromboplastin Ratio 1.0 Anion Gap 6.0 mmol/L (3-11) Est Creatinine Clear Calc Drug Dose 62.6 ml/min Estimated GFR () 81.0 Estimated GFR (Non- 69.9 BUN/Creatinine Ratio 10.9 (10-20) Calcium Level 9.4 mg/dl (8.5-10.1) Total Bilirubin 1.3 mg/dl (0.2-1) Aspartate Amino Transf (AST/SGOT) 25 U/L (15-37) Alanine Aminotransferase (ALT/SGPT) 31 U/L (12-78) Alkaline Phosphatase 73 U/L (45-117) Total Creatine Kinase 74 U/L (39-308) Creatine Kinase MB 1.4 ng/ml (0.5-3.6) Creatine Kinase MB Ratio 1.9 (0-3.0) Troponin I < 0.015 ng/ml (0-0.045) Total Protein 7.9 gm/dl (6.4-8.2) Albumin 4.0 gm/dl (3.4-5.0) Globulin 3.9 gm/dl (2.5-4.0) Albumin/Globulin Ratio 1.0 (0.9-2) Bedside D-Dimer 206 ng/mlFEU (0-450) Laboratory results per my review. ECG Indication: chest pain Rate (beats per minute): 62 Findings: no ectopy, other (No acute ST segment abnormality) Comparison ECG Date: 01/15/17 Change: no significant change ED Course 1251: The patient was evaluated in room A11B. A complete history and physical examination were performed. 1512: Upon reevaluation, the patient is resting comfortably. I discussed the results and treatment plan with him. He verbalized agreement of the treatment plan. The patient was discharged home. Medical Decision Differential diagnosis: Etiologies such as cardiac ischemia, aortic dissection, pulmonary embolism, pneumonia, pneumothorax, musculoskeletal, infections, pericarditis, myocarditis , esophageal rupture, gastrointestinal, as well as others were entertained. Nursing notes reviewed. Additional history is obtained from the patient's family members. The patient is a 67-year-old male who presented to the emergency department for right-sided chest pain. The patient describes discomfort under his right clavicle. The pain is not radiating. The pain is not associated with exertion. The patient told his significant other about this discomfort he was having and she recommended that he come to the emergency department. The patient does have a history of coronary artery disease and bypass. His significant other states that he did not have typical symptoms when he presented with his acute coronary syndrome. The patient's EKG did not show any ischemic changes and his cardiac biomarkers are negative despite having ongoing symptoms for quite some time. The patient's CT the chest did not show any acute aortic pathology or pulmonary embolism. I discussed patient's laboratory and radiographic studies with him. He was encouraged to rest and avoid any strenuous activity. He was also encouraged to continue all medications as prescribed and follow-up with his primary care physician. He was also encouraged to return to the emergency department immediately if symptoms change worsen or the need arises. Medication Reconcilliation Current Medication List: was personally reviewed by me Blood Pressure Screening Patient's blood pressure: Elevated blood pressure Blood pressure disposition: Elevated BP felt to be situational Impression Primary Impression: Right-sided chest pain Scribe Attestation The scribe's documentation has been prepared under my direction and personally reviewed by me in its entirety. I confirm that the note above accurately reflects all work, treatment, procedures, and medical decision making performed by me. Departure Information Dispostion Home / Self-Care Referrals Ilana Munguia DO (PCP) Forms IMPORTANT VISIT INFORMATION Patient Instructions ED Chest Pain Atypical Unkn Cause, My [facility] Additional Instructions Rest and avoid any strenuous activity. Continue all medications as prescribed. Follow-up with your family doctor as scheduled. Return to the emergency department immediately if symptoms change worsen or the need arises.
[2017-10-18 13:04] VITALS: O2SAT 98
[2017-10-18 13:15] LABS: BASO % 0.7 %; BASO ABS # 0.04 K/uL (0-0.2); COMPLETE YES; EOS % 1.1 %; HEMATOCRIT 45.1 % (42-52); IG% 0.2 %; LYMPH % 26.1 %; MEAN CELL VOLUME 87.2 fL (80-100); MEAN CORPUSCULAR HGB CONC 34.4 g/dl (32-36); MEAN PLATELET VOLUME 9.3 fL (7.4-10.4); MONO % 10.3 %; NEUT % 61.6 %; PLATELET COUNT 216 K/uL (130-400); RED BLOOD COUNT 5.17 M/uL (4.7-6.1); WHITE BLOOD COUNT 5.36 K/uL (4.8-10.8)
[2017-10-18 13:24] LABS: PROTHROMBIN TIME (PATIENT) 10.8 SECONDS (9.0-12.0)
[2017-10-18 13:36] LABS: ALT/SGPT 31 U/L (12-78); BLOOD UREA NITROGEN 12 mg/dl (7-18); BUN/CREATININE RATIO 10.9 (10-20); CALCIUM 9.4 mg/dl (8.5-10.1); CARBON DIOXIDE 29 mmol/L (21-32); CHLORIDE 102 mmol/L (98-107); CREATININE 1.09 mg/dl (0.60-1.40); GLUCOSE 88 mg/dl (70-99); SODIUM 137 mmol/L (136-145)
[2017-10-18 13:41] LABS: ALKALINE PHOSPHATASE 73 U/L (45-117); AST/SGOT 25 U/L (15-37); CKMB/CK RATIO 1.9 (0-3.0)
--- NOTE | 2017-10-18 14:01 | DIAGNOSTIC IMAGING REPORT ---
CHEST ONE VIEW PORTABLE CLINICAL HISTORY: Dyspnea. Respiratory distress. COMPARISON STUDY: Chest radiograph and chest CT January 14, 2017. FINDINGS: There are median sternotomy wires and clips from bypass grafting. No pneumothorax or pleural effusion is present. There is no consolidation. Cardiomediastinal silhouette is normal. Pulmonary vascularity is normal. IMPRESSION: No acute cardiopulmonary findings. Electronically signed by: Miguel A Narvaez M.D. 10/18/2017 1:59 PM Dictated Date/Time: 10/18/2017 1:58 PM
[2017-10-18] MEDS ORDERED: OPTIRAY 320 IV PRN (14:30)
[2017-10-18 14:57] VITALS: BP 145/76; PULSE 61; O2SAT 100
--- NOTE | 2017-10-18 15:02 | DIAGNOSTIC IMAGING REPORT ---
CT ANGIOGRAM OF THE CHEST CLINICAL HISTORY: Right-sided chest pain COMPARISON STUDY: Chest x-ray dated 10/18/2017, CT scan dated 01/14/2017 TECHNIQUE: Following the IV administration of 94 mL of [id number], CT angiogram of the thorax was performed from the thoracic inlet to the lung bases utilizing the pulmonary embolus protocol. Images are reviewed in the axial, sagittal, and coronal planes. IV contrast was administered without complication. MIP imaging was performed. A dose lowering technique was utilized adhering to the principles of ALARA. CT DOSE: 400.05 mGycm FINDINGS: The heart is normal in size. There are coronary artery calcifications. No pathologically enlarged axillary mediastinal or hilar lymph nodes were visualized. There was no evidence of thoracic aortic dilatation. There were no pulmonary artery filling defects to indicate acute pulmonary embolism. No pleural effusions are visualized. There are dependent atelectatic changes. There are no areas of focal pulmonary consolidation to indicate a pneumonitis. IMPRESSION: 1. No evidence of acute pulmonary embolism 2. No evidence of focal pulmonary consolidation Electronically signed by: Maverick Triana M.D. 10/18/2017 3:01 PM Dictated Date/Time: 10/18/2017 2:56 PM
== END 2017-10-18 15:40 | disposition home or self-care (01) ==
LOC: C.EDB 12:43 → C.EDA 15:40
DX: R07.9 Chest pain, unspecified (principal); Z82.49 Family history of ischemic heart disease and other diseases of the circulatory system; Z87.891 Personal history of nicotine dependence; Z79.82 Long term (current) use of aspirin

== ENCOUNTER → 2018-02-18 | Outpatient (CLI) | payer BC ==
[~2018-02-18] MED LIST changes: -PRT40 PO
[2018-02-18 13:35] LABS: HEMOGLOBIN 13.8 g/dL (14.0-18.0); MEAN CELL VOLUME 88.9 fL (80-100); MEAN CORPUSCULAR HEMOGLOBIN 29.9 pg (25-34); MEAN CORPUSCULAR HGB CONC 33.7 g/dl (32-36); MEAN PLATELET VOLUME 9.6 fL (7.4-10.4); PLATELET COUNT 292 K/uL (130-400); RED CELL DISTRIBUTION WIDTH CV 14.1 % (11.5-14.5); RED CELL DISTRIBUTION WIDTH SD 46.3 fL (36.4-46.3); WHITE BLOOD COUNT 4.86 K/uL (4.8-10.8)
[2018-02-18 13:58] LABS: ALBUMIN 3.4 gm/dl (3.4-5.0); ALT/SGPT 33 U/L (12-78); AST/SGOT 27 U/L (15-37); BLOOD UREA NITROGEN 11 mg/dl (7-18); CALCIUM 9.1 mg/dl (8.5-10.1); CARBON DIOXIDE 29 mmol/L (21-32); CREATININE 0.83 mg/dl (0.60-1.40); GLUCOSE 88 mg/dl (70-99); POTASSIUM 3.8 mmol/L (3.5-5.1); SODIUM 138 mmol/L (136-145)
[2018-02-18 14:09] LABS: ALKALINE PHOSPHATASE 62 U/L (45-117); CHOLESTEROL 127 mg/dl (0-200); LDL CHOLESTEROL CALCULATED 57 mg/dl; TOTAL PROTEIN 6.7 gm/dl (6.4-8.2)
[2018-02-18 14:19] LABS: HEMOGLOBIN A1C 5.9 % (4.5-5.6)
== END | disposition home or self-care (01) ==
LOC: C.LABPBG 07:36
PROVIDERS: ATTEND Family Medicine
DX: I10 Essential (primary) hypertension (principal); E78.00 Pure hypercholesterolemia, unspecified; E03.9 Hypothyroidism, unspecified; I25.10 Atherosclerotic heart disease of native coronary artery without angina pectoris; E88.81 Metabolic syndrome and other insulin resistance

== ENCOUNTER 2021-05-03 14:07 | Inpatient (IN) ==
--- NOTE | 2021-05-03 14:42 | Emergency Department Note ---
Impression & Plan Non-ST elevation [place] (NSTEMI), Chest pain, Abnormal EKG ED Provider Note NAME: ALY ENNIS AGE: 71 SEX: M : 1950 ARRIVES VIA: Walk-In INFORMANT: Patient, ED PROVIDER(S): Mahad Bardales DO CHIEF COMPLAINT: Chest pain the patient is a 71-year-old male who presented to the emergency department for an evaluation HPI: Chest pain. The patient has been more active than usual. He has been and started noticing discomfort in his right chest. The patient has been kayaking with his significant other. He has gone kayaking the last few days after kayaking today he was done unloading his kayaks He describes a discomfort in the right upper chest wall. He states it is not reproducible. It is not worsened with taking a deep breath. He does not notice any shortness of breath associated with this. He has had no lower extremity edema. He also notices a discomfort on the left side of his neck. He talked to his daughter who is a nurse who recommended that he take his aspirin and nitroglycerin. He states that the aspirin and nitroglycerin helped improve his symptoms and at this time his pain is mild. The patient has a history of coronary artery disease and coronary artery bypass grafting 6 years ago. He has not had a stress test or a heart catheterization since that procedure. He denies having any fever or coug h. He has had no recent trauma. ROS: See above HPI for pertinent positives & negatives. A total of 10 systems reviewed and were otherwise negative. PAST MEDICAL HISTORY: See Below PAST SURGICAL HISTORY: See Below FAMILY HISTORY: See Below SOCIAL HISTORY: See Below HOME MEDICATIONS: See Below ALLERGIES: See Below VITALS: See Below PHYSICAL EXAMINATION: GENERAL: Patient is awake alert in no acute distress patient is resting comfortably and showing no signs of anxiety EYES: The conjunctivae are clear. The pupils are round and reactive. EARS, NOSE, MOUTH AND THROAT: The nose is without any evidence of any deformity. NECK: The neck is nontender and supple. RESPIRATORY: Normal respiratory effort is noted there is no evidence of wheezing rhonchi or rales CARDIOVASCULAR: Regular rate and rhythm noted there no murmurs rubs or gallops normal S1 normal S2. GASTROINTESTINAL: The abdomen is soft. Abdomen is nontender. MUSCULOSKELETAL/EXTREMITIES: There is no evidence of gross deformity full range of motion is noted in the hips and shoulders. SKIN: There is no obvious evidence of any rash. There are no petechiae, pallor or cyanosis noted. NEUROLOGIC: Patient is awake alert and oriented x3. MEDICAL DECISION MAKING: The patient is a 71-year-old male who is a history of coronary artery bypass grafting who presented to the emergency department for an evaluation of chest pain. The patient has been increasing his activity recently. He was doing some exertional activity and then started noticing vague right-sided chest pain. The chest pain was not worsened with exertion but did improve with aspirin and nitroglycerin. He did have some discomfort in the neck. I discussed the patient's laboratory and radiographic studies with him. I also discussed the limitations of the emergency department work-up for chest pain with him. Ultimately he was found to have minimal changes in his EKG compared to previous and an elevated troponin. For this reason the patient was started on heparin. He did take aspirin and nitroglycerin prior to arrival as well. He was given nitroglycerin in the ER. I discussed his case with the patient's primary consumer lending manager. The [facility] hospitalist was also notified about the patient. He was evaluated in the emergency department by the [facility] consumer lending manager. Triage Nursing notes reviewed. Prior medical records reviewed Vital Signs: reviewed and remarkable for hypertension. Differential diagnosis: Cardiac ischemia, aortic dissection, pulmonary embolism, pneumothorax, pneumonia, pericarditis, myocarditis, esophageal rupture, GERD, cholecystitis, pancreatitis, musculoskeletal, as well as other pathologies. ER treatment provided: See below Diagnostics interpreted by me: ECG: EKG was obtained in the emergency department. My interpretation is normal sinus rhythm at [address] Inferior and lateral ST abnormalities were noted. This was compared to a tracing from July 082018. The ST segment abnormalities are more pronounced on today's tracing otherwise no significant changes were noted. Cardiac Monitoring: An order was placed for continuous cardiac monitoring. The monitor shows a rate of 68 bpm with sinus rhythm. Laboratory studies: As stated above and show below. Imaging studies: See below Consultation(s): [id number]: I discussed this case with Dr. Spencer who is on-call for [facility] cardiology. He will evaluate the patient in the emergency department. ED COURSE: Procedures: none PDMP:reviewed and no issues Critical Care: I have personally spent greater than 35 minutes of critical care time in the direct management of this patient. This includes bedside care, interpretation of diagnostic studies, and testing, discussion with consultants, patient, and family members, and other required patient management activities. This 35 minutes is in excess of all separately billable procedures. Past Med/Surg History Medical History (Updated 05/04/21 @ 16:35 by Mahad Bardales DO) Anemia Coronary artery disease Dyslipidemia GERD (gastroesophageal reflux disease) History of [place] (myocardial infarction) Hypertension Hypothyroidism Mild cognitive impairment Polymyalgia rheumatica Prediabetes Vitamin D deficiency Surgical History (Updated 05/03/21 @ 17:33 by Brice Spencer MD) S/P CABG x 3 (03/2015) Family History Father Coronary heart disease Myocardial infarction Hx of CABG, Onset Age: 49 Dementia Grandfather (Paternal) , 62 Coronary heart disease Myocardial infarction Sister Multiple sclerosis Aunt Dementia paternal aunt Denies family history of Ovarian cancer Prostate cancer Breast cancer Colorectal cancer Social History Smoking Status: Never smoker Hx Alcohol Use: Yes Alcohol type: wine Alcohol Intake Frequency: 4 or More x per/Week Hx Substance Use: No Preferred Language: Korean Communication Ability: Effective Visual Impairment: No Limitations Hearing Ability: Normal Beliefs That Will Affect Care: None marital status: Current Living Situation: Spouse current occupational status: retired 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[employer], 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[employer] Feels Safe at Home: Yes Childhood Exposure to Second-Hand Smoke: Yes caffeine: Yes (Coffee 10-12 cups per day.) during the past year weight has: remained stable Dental Care, Regularly: Yes Physical Activity Frequency: 5-6 Times per Week Physical Activity Frequency Comment: walking Seatbelt Use: always Sunscreen Use: Yes Assistive Devices: None Allergies Allergies Allergy/AdvReac Type Severity Reaction Status Date / Time No Known Drug Allergies Allergy Unknown NONE Verified 05/03/21 16:22 Food Additives Allergy Unknown SPICES-SYMPTOMS Uncoded 05/03/21 16:22 CHEST PRESSURE? Home Meds Home Medications Medication Instructions Recorded Confirmed calcium carbonate 600 mg (1,500 1 tab PO QAM tab 06/25/19 05/03/21 mg)-vitamin D3 200 unit tablet nitroglycerin 0.4 mg sublingual 0.4 mg SL ONCE PRN #1 tab 06/25/19 05/03/21 tablet aspirin 81 mg tablet,delayed 81 mg PO Q2D #30 tab 03/31/20 05/03/21 release vitamin E (dl, acetate) 400 unit 400 mg PO QAM 08/20/20 05/03/21 capsule levothyroxine 75 mcg PO QAM 05/03/21 05/03/21 lisinopril 5 mg PO QAM 05/03/21 05/03/21 metoprolol succinate 25 mg PO QAM 05/03/21 05/03/21 prednisone 10 mg PO DAILY 05/03/21 05/03/21 rosuvastatin 20 mg PO QAM 05/03/21 05/03/21 Previous Rx's Medication Instructions Recorded sildenafil 100 mg tablet 100 mg PO DAILY PRN #30 tab 12/31/20 Results & Data (ED) Vital Signs Vital Signs - 24 hr 05/03/21 16:40 05/03/21 16:41 05/03/21 16:45 Pulse Rate 65 57 L 61 Pulse Rate from SpO2 Sensor 65 57 L 59 L Respiratory Rate 15 16 13 Blood Pressure 147/80 H 142/84 H Blood Pressure Mean 102 103 Pulse Oximetry 96 96 97 05/03/21 16:50 05/03/21 16:55 05/03/21 17:00 Pulse Rate 63 58 L 62 Pulse Rate from SpO2 Sensor 56 L 59 L 59 L Respiratory Rate 13 13 18 Blood Pressure 133/79 141/78 H 139/74 Blood Pressure Mean 97 99 95 Pulse Oximetry 99 98 98 05/03/21 17:01 05/03/21 17:05 05/03/21 17:10 Pulse Rate 65 58 L 62 Pulse Rate from SpO2 Sensor 64 57 L 61 Respiratory Rate 14 17 21 Blood Pressure 117/72 125/71 Blood Pressure Mean 87 89 Pulse Oximetry 98 99 97 05/03/21 17:11 05/03/21 17:15 05/03/21 17:20 Pulse Rate 58 L 56 L 60 Pulse Rate from SpO2 Sensor 59 L 56 L 57 L Respiratory Rate 21 17 20 Blood Pressure 124/70 128/68 Blood Pressure Mean 88 88 Pulse Oximetry 97 99 98 05/03/21 17:25 05/03/21 17:30 05/03/21 17:31 Pulse Rate 59 L 66 58 L Pulse Rate from SpO2 Sensor 56 L 57 L 56 L Respiratory Rate 17 18 17 Blood Pressure 125/73 128/69 Blood Pressure Mean 90 88 Pulse Oximetry 98 98 98 05/03/21 17:35 05/03/21 17:40 05/03/21 17:45 Pulse Rate 56 L 61 54 L Pulse Rate from SpO2 Sensor 56 L 59 L 55 L Respiratory Rate 15 14 10 L Blood Pressure 117/69 121/69 123/69 Blood Pressure Mean 85 86 87 Pulse Oximetry 96 98 99 05/03/21 17:50 05/03/21 17:55 05/03/21 18:00 Pulse Rate 59 L 56 L 55 L Pulse Rate from SpO2 Sensor 59 L 55 L 55 L Respiratory Rate 14 13 16 Blood Pressure 117/74 103/71 119/64 Blood Pressure Mean 88 81 82 Pulse Oximetry 97 97 97 05/03/21 18:01 05/03/21 18:05 05/03/21 18:10 Pulse Rate 56 L 55 L 56 L Pulse Rate from SpO2 Sensor 56 L 55 L 53 L Respiratory Rate 17 22 15 Blood Pressure 113/68 112/64 Blood Pressure Mean 83 80 Pulse Oximetry 97 98 97 05/03/21 18:11 05/03/21 18:17 05/03/21 18:30 Pulse Rate 55 L 53 L 54 L Pulse Rate from SpO2 Sensor 50 L 52 L Respiratory Rate 12 18 12 Blood Pressure 130/73 115/66 Blood Pressure Mean 92 82 Pulse Oximetry 98 99 05/03/21 18:31 05/03/21 19:00 05/03/21 19:01 Pulse Rate 57 L 55 L 55 L Pulse Rate from SpO2 Sensor 53 L 52 L 56 L Respiratory Rate 20 14 26 H Blood Pressure 119/63 Blood Pressure Mean 81 Pulse Oximetry 98 99 96 Home Medications Current Medication List: was personally reviewed by me Laboratory Data Attestation: I reviewed the patient's lab results. Result diagrams: 05/03/21 14:36 05/03/21 14:36 Lab Results 05/03/21 05/03/21 05/03/21 Range/Units 14:36 14:36 15:39 WBC 7.42 (4.8-10.8) K/uL RBC 4.57 L (4.7-6.1) M/uL Hgb 14.0 (14.0-18.0) g/dL Hct 42.1 (42-52) % MCV 92.1 (80-100) fL MCH 30.6 (25-34) pg MCHC 33.3 (32-36) g/dL RDW Std Deviation 48.0 H (36.4-46.3) fL RDW Coeff of Jeet 14.2 (11.5-14.5) % Plt Count 298 (130-400) K/uL MPV 9.3 (7.4-10.4) fL Immature Gran % (Auto) 0.1 % Neut % (Auto) 82.1 % Lymph % (Auto) 10.1 % Rusk % (Auto) 7.3 % Eos % (Auto) 0.1 % Baso % (Auto) 0.3 % Neut # (Auto) 6.09 (1.4-6.5) K/uL Lymph # (Auto) 0.75 L (1.2-3.4) K/uL Rusk # (Auto) 0.54 (0.11-0.59) K/uL Eos # (Auto) 0.01 (0-0.5) K/uL Baso # (Auto) 0.02 (0-0.2) K/uL Immature Gran # (Auto) 0.01 (0.00-0.02) K/uL PT 10.4 (9.0-12.0) Seconds INR 1.0 (0.9-1.1) APTT 23.6 (21.0-31.0) Seconds PTT Ratio 0.9 Sodium 138 (136-145) mmol/L Potassium 4.1 (3.5-5.1) mmol/L Chloride 104 (98-107) mmol/L Carbon Dioxide 29 (21-32) mmol/L Anion Gap 5.0 (3-11) BUN 11 (7-18) mg/dl Creatinine 0.89 (0.6-1.4) mg/dl Est Cr Clr Drug Dosing 73.7 ml/min Est GFR ( Amer) 99.7 ml/min Est GFR (Non-Af Amer) 86.0 ml/min BUN/Creatinine Ratio 11.8 (10-20) Glucose 124 H (70-99) mg/dl Calcium 9.7 (8.5-10.1) mg/dl Total Bilirubin 1.0 (0.2-1) mg/dl AST 31 (15-37) U/L ALT 32 (12-78) U/L Alkaline Phosphatase 71 (45-117) U/L Troponin I 1.180 H* (0-0.045) ng/ml Total Protein 7.1 (6.4-8.2) gm/dl Albumin 3.4 (3.4-5.0) gm/dl Globulin 3.7 (2.5-4.0) gm/dl Albumin/Globulin Ratio 0.9 (0.9-2) Lipase 171 (73-393) U/L COVID-19 Eval Order SARS-CoV-2 (PCR) (Negative) 05/03/21 05/03/21 Range/Units 15:53 15:53 WBC (4.8-10.8) K/uL RBC (4.7-6.1) M/uL Hgb (14.0-18.0) g/dL Hct (42-52) % MCV (80-100) fL MCH (25-34) pg MCHC (32-36) g/dL RDW Std Deviation (36.4-46.3) fL RDW Coeff of Jeet (11.5-14.5) % Plt Count (130-400) K/uL MPV (7.4-10.4) fL Immature Gran % (Auto) % Neut % (Auto) % Lymph % (Auto) % Rusk % (Auto) % Eos % (Auto) % Baso % (Auto) % Neut # (Auto) (1.4-6.5) K/uL Lymph # (Auto) (1.2-3.4) K/uL Rusk # (Auto) (0.11-0.59) K/uL Eos # (Auto) (0-0.5) K/uL Baso # (Auto) (0-0.2) K/uL Immature Gran # (Auto) (0.00-0.02) K/uL PT (9.0-12.0) Seconds INR (0.9-1.1) APTT (21.0-31.0) Seconds PTT Ratio Sodium (136-145) mmol/L Potassium (3.5-5.1) mmol/L Chloride (98-107) mmol/L Carbon Dioxide (21-32) mmol/L Anion Gap (3-11) BUN (7-18) mg/dl Creatinine (0.6-1.4) mg/dl Est Cr Clr Drug Dosing ml/min Est GFR ( Amer) ml/min Est GFR (Non-Af Amer) ml/min BUN/Creatinine Ratio (10-20) Glucose (70-99) mg/dl Calcium (8.5-10.1) mg/dl Total Bilirubin (0.2-1) mg/dl AST (15-37) U/L ALT (12-78) U/L Alkaline Phosphatase (45-117) U/L Troponin I (0-0.045) ng/ml Total Protein (6.4-8.2) gm/dl Albumin (3.4-5.0) gm/dl Globulin (2.5-4.0) gm/dl Albumin/Globulin Ratio (0.9-2) Lipase (73-393) U/L COVID-19 Eval Order Covid19 at [facility] SARS-CoV-2 (PCR) NEGATIVE (Negative) Administered Medications Acetaminophen (Acetaminophen 325 Mg Tab) 650 mg PO Q4H PRN PRN Reason: Pain or Fever Stop: 06/02/21 20:58 Last Admin: 05/04/21 04:37 Dose: 650 mg Documented by: [id number] Heparin Sodium/Dextrose (Heparin Sodium/Dextrose) 25,000 units in 500 mls @ 0 mls/hr IV .Q0M [facility]; Protocol Stop: 06/02/21 15:44 Last Titration: 05/04/21 10:42 Dose: 0 units/hr, 0 mls/hr Documented by: [id number] Cosigned by: [id number] Titration: 05/04/21 03:11 Dose: 950 units/hr, 19 mls/hr Documented by: [id number] Cosigned by: [id number] Titration: 05/04/21 00:00 Dose: 0 units/hr, 0 mls/hr Documented by: [id number] Cosigned by: [id number] Admin: 05/03/21 15:49 Dose: 1,300 units/hr, 26 mls/hr Documented by: [id number] Cosigned by: [id number] Levothyroxine Sodium (Levothyroxine Sodium 75 Mcg Tablet) [facility] Stop: 06/03/21 06:29 Last Admin: 05/04/21 05:33 Dose: 75 mcg Documented by: [id number] Nitroglycerin (Nitroglycerin 2% Ointment 30gm Tube) 1 inch EXT Q6H [facility] Stop: 06/02/21 16:44 Last Admin: 05/04/21 14:58 Dose: Not Given Documented by: [id number] Admin: 05/04/21 04:38 Dose: 1 inch Documented by: [id number] Admin: 05/03/21 23:07 Dose: 1 inch Documented by: [id number] Admin: 05/03/21 16:42 Dose: 1 inch Documented by: [id number] Prednisone (Prednisone 10 Mg Tablet) 10 mg PO DAILY [facility] Stop: 05/05/21 09:01 Last Admin: 05/04/21 14:35 Dose: 10 mg Documented by: [id number] Rosuvastatin Calcium (Rosuvastatin Calcium 20 Mg Tab) 20 mg PO QAM [facility] Stop: 06/03/21 08:59 Last Admin: 05/04/21 14:35 Dose: 20 mg Documented by: [id number] Ticagrelor (Ticagrelor 90 Mg Tab) 90 mg PO BID [facility] Stop: 06/03/21 08:59 Last Admin: 05/04/21 14:35 Dose: 90 mg Documented by: [id number] Discontinued Medications Aspirin (Aspirin 81 Mg Chew) Confirm Administered Dose 162 mg .ROUTE .STK-MED ONE Stop: 05/03/21 16:31 Last Admin: 05/03/21 16:42 Dose: 162 mg Documented by: [id number] Fentanyl Citrate (Fentanyl Citrate 100 Mcg/2 Ml Vial) Confirm Administered Dose 100 mcg .ROUTE .STK-MED ONE Stop: 05/04/21 11:30 Last Admin: 05/04/21 12:21 Dose: 25 mcg Documented by: [id number] Heparin Sodium (Porcine) (Heparin Sod (Porcine) 1000 Unit/Ml) 1 units IV NOW ONE Stop: 05/03/21 15:46 Last Admin: 05/03/21 15:48 Dose: 5,000 units Documented by: [id number] Cosigned by: [id number] Heparin Sodium (Porcine) (Heparin (Porcine) 1000 Unit/Ml 10 Ml (Inorganic Chemist Use Only)) Confirm Administered Dose 10,000 units .ROUTE .STK-MED ONE Stop: 05/04/21 11:29 Last Admin: 05/04/21 12:20 Dose: 3,000 units Documented by: [id number] Heparin Sodium/Dextrose (Heparin Iv Adult Wt-Based Standard With Bolus Protocol) 1 ea IV NOW STA; Protocol Stop: 05/03/21 15:31 Last Admin: 05/03/21 15:48 Dose: 1 ea Documented by: [id number] Sodium Chloride (Nss 1000ml) 1,000 mls @ 80 mls/hr IV .[id number] HIRA Stop: 05/04/21 09:29 Last Infusion: 05/04/21 10:34 Dose: 0 mls/hr Documented by: [id number] Admin: 05/03/21 21:21 Dose: 80 mls/hr Documented by: [id number] Midazolam HCl (Midazolam Hcl 1 Mg/Ml 2ml Vial) Confirm Administered Dose 2 mg . ROUTE .STK-MED ONE Stop: 05/04/21 11:30 Last Admin: 05/04/21 12:22 Dose: 1 mg Documented by: [id number] Nicardipine HCl (Nicardipine Hcl Inj 2.5 Mg/Ml 10 Ml Amp) Confirm Administered Dose 25 mg .ROUTE .STK-MED ONE Stop: 05/04/21 11:25 Last Admin: 05/04/21 12:20 Dose: 25 mg Documented by: [id number] Nitroglycerin (Nitroglycerin Sl 0.4 Mg/Tab Tab) Confirm Administered Dose 0.4 mg .ROUTE .STK-MED ONE Stop: 05/03/21 16:20 Last Admin: 05/03/21 16:20 Dose: 0.4 mg Documented by: [id number] Nitroglycerin (Nitroglycerin Sl 0.4 Mg/Tab Tab) Confirm Administered Dose 0.4 mg .ROUTE .STK-MED ONE Stop: 05/03/21 16:28 Last Admin: 05/03/21 16:36 Dose: 0.8 mg Documented by: [id number] Nitroglycerin/Dextrose (Nitroglycerin/D5w 100mcg/Ml 20ml Syr) Confirm Administered Dose 2,000 mcg .ROUTE .STK-MED ONE Stop: 05/04/21 11:28 Last Admin: 05/04/21 12:21 Dose: 2,000 mcg Documented by: [id number] Ticagrelor (Ticagrelor 90 Mg Tab) Confirm Administered Dose 90 mg PO .STK-MED ONE Stop: 05/03/21 16:32 Last Admin: 05/03/21 16:36 Dose: Not Given Documented by: [id number] Ticagrelor (Ticagrelor 90 Mg Tab) 180 mg PO ONE ONE Stop: 05/03/21 16:29 Last Admin: 05/03/21 16:42 Dose: 180 mg Documented by: [id number] Ticagrelor (Ticagrelor 90 Mg Tab) Confirm Administered Dose 90 mg PO .STK-MED ONE Stop: 05/03/21 16:33 Last Admin: 05/03/21 16:36 Dose: Not Given Documented by: [id number] Imaging Data Radiologist's Impression: Chest X-Ray 05/03/21 14:55 XR chest 1V portable HISTORY: 71 years-old Male Chest Pain atypical chest pain COMPARISON: Chest radiograph 07/08/2019, CTA chest 10/18/2017 TECHNIQUE: Portable AP view the chest FINDINGS: The cardiomediastinal and hilar silhouettes are unchanged. Prior median sternotomy. No pneumothorax, pleural effusion, airspace consolidation or overt pulmonary edema. Degenerative changes of the shoulders and spine. IMPRESSION: No acute process. ACT 112: Negative or not required by law. The above report was generated using voice recognition software. It may contain grammatical, syntax or spelling errors. Electronically signed by: Mick Frias M.D. 05/03/2021 3:10 PM Discharge Plan Visit Data Chief Complaint: Chest Pain Stated Complaint: CHEST PAIN INTO NECK ED Provider: Mahad Bardales Discharge Problem: Non-ST elevation [place] (NSTEMI), Chest pain, Abnormal EKG Patient Disposition: Admitted As Inpatient Condition: Good Discharge Instructions Interventions: ED Discharge Assessment Last Done: 05/03/21 20:22 Discharge Problem: Chest pain Qualifiers: Chest pain type: unspecified Qualified Code(s): R07.9 - Chest pain, unspecified
[2021-05-03 15:10] LABS: Basophils # (auto) 0.02 K/uL (0-0.2); Basophils % (auto) 0.3 %; Eosinophils # (auto) 0.01 K/uL (0-0.5); Eosinophils % (auto) 0.1 %; Hematocrit (blood only) 42.1 % (42-52); Immature Granulocytes # (auto) 0.01 K/uL (0.00-0.02); Immature Granulocytes % (auto) 0.1 %; Lymphocytes # (auto) 0.75 K/uL (1.2-3.4); Lymphocytes % (auto) 10.1 %; Mean Corpuscular Hemoglobin 30.6 pg (25-34); Mean Corpuscular Hgb Conc 33.3 g/dL (32-36); Mean Corpuscular Volume 92.1 fL (80-100); Mean Platelet Volume 9.3 fL (7.4-10.4); Monocytes # (auto) 0.54 K/uL (0.11-0.59); Monocytes % (auto) 7.3 %; Neutrophils # (auto) 6.09 K/uL (1.4-6.5); Neutrophils % (auto) 82.1 %; Platelet Count 298 K/uL (130-400); RDW Coefficient of Variation 14.2 % (11.5-14.5); Red Blood Count 4.57 M/uL (4.7-6.1); White Blood Count 7.42 K/uL (4.8-10.8)
--- NOTE | 2021-05-03 15:11 | XRay Report ---
XR chest 1V portable HISTORY: 71 years-old Male Chest Pain atypical chest pain COMPARISON: Chest radiograph 07/08/2019, CTA chest 10/18/2017 TECHNIQUE: Portable AP view the chest FINDINGS: The cardiomediastinal and hilar silhouettes are unchanged. Prior median sternotomy. No pneumothorax, pleural effusion, airspace consolidation or overt pulmonary edema. Degenerative changes of the should ers and spine. IMPRESSION: No acute process. ACT 112: Negative or not required by law. The above report was generated using voice recognition software. It may contain grammatical, syntax o r spelling errors. Electronically signed by: Mick Frias M.D. 05/03/2021 3:10 PM
[2021-05-03 15:18] LABS: Albumin Level 3.4 gm/dl (3.4-5.0); BUN Creatinine Ratio 11.8 (10-20); Calcium 9.7 mg/dl (8.5-10.1); Creatinine Clr Calc Pharmacy 73.7 ml/min; Est GFR (African American) 99.7 ml/min; Potassium 4.1 mmol/L (3.5-5.1)
[2021-05-03 15:30] LABS: Albumin Globulin Ratio 0.9 (0.9-2); Globulin 3.7 gm/dl (2.5-4.0); Total Protein 7.1 gm/dl (6.4-8.2); Troponin I 1.18 ng/ml (0-0.045)
[2021-05-03] MEDS ORDERED: Heparin IV Adult Wt-Based Standard WITH Bolus Protocol IV STA (15:30)
[2021-05-03] MEDS ORDERED: HEPARIN SODIUM/DEXTROSE 25,000 UNITS/500 ML BAG IV SCH ×2 (15:45→20:59)
[2021-05-03] MEDS ORDERED: HEPARIN SOD (PORCINE) 1000 UNIT/ML IV ONE (15:45)
[2021-05-03 16:04] LABS: Partial Thromboplastin Ratio 0.9; Partial Thromboplastin Time 23.6 Seconds (21.0-31.0); Prothrombin Time 10.4 Seconds (9.0-12.0)
[2021-05-03] MEDS ORDERED: NITROGLYCERIN SL 0.4 MG/TAB TAB ONE ×2 (16:19→16:27)
[2021-05-03] MEDS ORDERED: TICAGRELOR 90 MG TAB PO ONE ×3 (16:28→16:32)
[2021-05-03] MEDS ORDERED: ASPIRIN 81 MG CHEW ONE (16:30)
[2021-05-03] MEDS: NITROGLYCERIN 2% OINTMENT 30GM TUBE EXT SCH ×2 (16:42→23:07)
--- NOTE | 2021-05-03 17:38 | Cardiology Consultation ---
Date of Consultation May 03, 2021 Assessment & Plan (1) Non-ST elevation (NSTEMI) myocardial infarction: (2) Coronary artery disease: (3) S/P CABG x 3: (4) Hypertension: (5) Dyslipidemia: ASSESSMENT/PLAN: 1. NSTEMI: Had ongoing angina at rest. After additional nitroglycerin x2, symp toms have completely resolved. Pre hospital, he had a total of 162 mg of aspirin. ER nurse was asked to given additional 162 mg of aspirin. Nitroglycerin paste ordered. Brilinta 180 mg x 1. Echocardiogram ordered. Recommended cardiac catheterization. Now that he is chest pain-free, not emergent catheterization. If he should have recurrent symptoms that do not resolve with medical therapy, urgent cardiac catheterization will be recommended. Risks and benefits of cardiac catheterization discussed with him in detail, including the possibility of PCI. NPO after midnight except for medications. 2. CAD s/p CABG x 3: Plan as above. Continue anti-platelet therapy, high- intensity statin therapy, and beta-dar. He is well beta blocked. Continue SHARA-inhibitor. 3. Hypertension: Blood pressure was elevated but improved with nitroglycerin and at the time of this note, blood pressure has normalized. Maintain adequate blood pressure control, especially in the setting of NSTEMI. 4. Dyslipidemia: Continue high-intensity statin therapy. LDL has been well controlled. 5. Disposition: Cardiology will continue to follow along. Patient care was discussed with Dr. Bardales of the ED, and Dr. Cruz of the hospitalist service who will be admitting him from the ER. Highly complex medical issues. Thank you for allowing me to participate in the care of your patient. Please call for any other questions or concerns. Sincerely, Abisai Spencer M.D. History of Present Illness Reason for Consultation: NSTEMI Requesting Physician: Dr. Bardales Attending Physician: Dr. Bardales History of Present Illness Mr. Perrin is a very pleasant 71-year-old gentleman with a history significant for multivessel CAD s/p CABG x 3, hypertension, and dyslipidemia. He has had the following studies/procedures: 1. Stress echo 04/05/2015: Positive stress echo suggesting LAD ischemia at suboptimal heart rate. EF 55-60%. No significant valvular abnormalities. Normal wall motion at rest. 2. Cardiac catheterization 04/08/2015: Proximal LAD 80-90%. Mid to distal LAD 50% narrowing. Distal LAD is small in caliber. Dominant circumflex. Ostial circumflex 70-80%. OM1 and PDA without CAD. Small, non dominant RCA. No aortic stenosis. Normal LVEDP. 3. CABG x 3 at [facility] 04/14/15: NICHOLAS to LAD. SVG to OM1. SVG to PDA. 4. Stress echo 10/28/2015: No significant ischemic changes at 98% MPHR on stress echo. There was possible hypokinesis to akinesis of mid inferior wall at rest and stress. Abnormal exercise ECG. No arrhythmia. No chest pain. Good exercise tolerance. 9 minutes 44 seconds Wood protocol. 5. Stress echo 01/15/2017: Negative stress echo and ECG at 95% MPHR. No chest pain. Mildly hypertensive response. No arrhythmia. 6 minutes 29 seconds Wood protocol. EF 55-60%. Normal wall motion. Mild LVH. Type 1 diastolic dysfunction. Mildly dilated RV with normal function. No significant valvular abnormalities. 6. Stress echo 07/08/2019: At peak stress, very mild septal hypokinesis. Low risk exercise stress echo without significant ischemia. 8 minutes Wood protocol. EF 60-65%. Normal wall motion at rest. Mild AI. He was seen in the emergency department today at the request of Dr. Bardales for ongoing chest discomfort and elevated troponin. He was last seen in the office on 03/17/2021 and was feeling well at that time. Three or 4 weeks ago however, while doing a war re-enactment, he had to stop and rest with activities that typically he was able to perform. He then felt wasted or fatigued for the next few days. He had no chest discomfort however. This morning, he went kayaking. At approximately 12:30 p.m., he developed a right-sided chest discomfort that radiated to the left side of his neck and left jaw. The chest discomfort was not severe but similar to prior symptoms in 2014 that prompted stress testing, cardiac catheterization, and CABG x3. He took aspirin 81 mg and nitroglycerin x1. Symptoms improved. He came to the emergency department for further evaluation and continued to have this discomfort. Initial troponin was elevated and he was placed on heparin drip by Dr. Bardales. He admits that symptoms are better with rest. He denies shortness of breath, syncope, near-syncope, palpitations, edema, or bleeding. While in the emergency department, recommended another nitroglycerin as he was hypertensive with systolic blood pressure in the low 180s. With this, blood pressure to systolic 150s and chest discomfort nearly resolved. Another nitroglycerin improved systolic blood pressure to 140 and his chest discomfort completely resolved, including his neck pain. Review of systems: As above. Family history: Father had CABG at age 49. He has a sister with multiple sclerosis. Social history: He denies smoking. He has 1 glass of wine per day. No drugs. 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 He is . They have 2 daughters. 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 He enjoys riding a motorcycle, and also participates in Civil War re-enactments and [employer] shooting. His accompanied him in the emergency department. Allergies Allergy/AdvReac Type Severity Reaction Status Date / Time No Known Drug Allergies Allergy Unknown NONE Verified 05/03/21 16:22 Food Additives Allergy Unknown SPICES-SYMPTOMS Uncoded 05/03/21 16:22 CHEST PRESSURE? Home Medications Medication Instructions Recorded Confirmed Type calcium carbonate 600 mg (1,500 1 tab PO QAM tab 06/25/19 05/03/21 History mg)-vitamin D3 200 unit tablet nitroglycerin 0.4 mg sublingual 0.4 mg SL ONCE PRN #1 tab 06/25/19 05/03/21 History tablet aspirin 81 mg tablet,delayed 81 mg PO Q2D #30 tab 03/31/20 05/03/21 History release vitamin E (dl, acetate) 400 unit 400 mg PO QAM 08/20/20 05/03/21 History capsule sildenafil 100 mg tablet 100 mg PO DAILY PRN #30 tab 12/31/20 05/03/21 Rx levothyroxine 75 mcg PO QAM 05/03/21 05/03/21 History lisinopril 5 mg PO QAM 05/03/21 05/03/21 History metoprolol succinate 25 mg PO QAM 05/03/21 05/03/21 History prednisone 10 mg PO DAILY 05/03/21 05/03/21 History rosuvastatin 20 mg PO QAM 05/03/21 05/03/21 History Patient History Medical History Anemia Coronary artery disease Dyslipidemia GERD (gastroesophageal reflux disease) History of [place] (myocardial infarction) Hypertension Hypothyroidism Mild cognitive impairment Polymyalgia rheumatica Prediabetes Vitamin D deficiency Surgical History S/P CABG x 3 (03/2015) Family History Father Coronary heart disease Myocardial infarction Hx of CABG, Onset Age: 49 Dementia Grandfather (Paternal) , 62 Coronary heart disease Myocardial infarction Sister Multiple sclerosis Aunt Dementia paternal aunt Denies family history of Ovarian cancer Prostate cancer Breast cancer Colorectal cancer Social History Smoking Status: Never smoker Hx Alcohol Use: Yes Alcohol type: beer and wine Alcohol Intake Frequency: 4 or More x per/Week Hx Substance Use: No Preferred Language: Sri Lankan Communication Ability: Effective Visual Impairment: No Limitations Hearing Ability: Normal Beliefs That Will Affect Care: None marital status: Current Living Situation: Spouse current occupational status: retired 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 Alert and oriented. HEENT: Anicteric sclera. Neck: No JVD. No bruits. Normal carotid upstrokes bilaterally. Cardiac: PMI was nondisplaced. No ventricular heave. Regular rate and rhythm. Normal S1-S2. No murmurs, rubs, or gallops. Pulmonary: Clear to auscultation bilaterally without wheezes, rales, or rhonchi. Abdomen: Soft, nontender, nondistended, with normoactive bowel sounds. No bruits noted. Extremities: 2+ radial pulses bilaterally. 2+ posterior tibialis pulses bilaterally. No edema or cyanosis. Psychiatric: Affect appears appropriate. Results & Data ([facility]) Vital Signs (Past 12 Hours) Vital Signs Temp Pulse Pulse Resp BP BP Pulse Ox 05/03/21 17:10 62 21 125/71 97 05/03/21 17:05 58 L 17 117/72 99 05/03/21 17:01 65 14 98 05/03/21 17:00 62 18 139/74 98 05/03/21 16:55 58 L 13 141/78 H 98 05/03/21 16:50 63 13 133/79 99 05/03/21 16:45 61 13 142/84 H 97 05/03/21 16:41 57 L 16 96 05/03/21 16:40 65 15 147/80 H 96 05/03/21 16:35 65 20 150/83 H 94 05/03/21 16:31 72 15 96 05/03/21 16:30 70 22 140/82 95 05/03/21 16:25 66 19 159/80 H 98 05/03/21 16:20 63 16 186/98 H 99 05/03/21 16:01 62 23 167/82 H 98 05/03/21 16:00 58 L 17 05/03/21 15:46 63 16 98 05/03/21 15:30 64 15 134/77 99 05/03/21 15:03 59 L 20 97 05/03/21 14:43 59 L 20 153/88 H 97 05/03/21 14:25 97 05/03/21 14:14 36.6 C 74 16 142/76 H 97 Laboratory Results Laboratory Results - last 24 hr 05/03/21 05/03/21 05/03/21 14:36 14:36 15:39 WBC 7.42 RBC 4.57 L Hgb 14.0 Hct 42.1 MCV 92.1 MCH 30.6 MCHC 33.3 RDW Std Deviation 48.0 H RDW Coeff of Jeet 14.2 Plt Count 298 MPV 9.3 Immature Gran % (Auto) 0.1 Neut % (Auto) 82.1 Lymph % (Auto) 10.1 [facility] % (Auto) 7.3 Eos % (Auto) 0.1 Baso % (Auto) 0.3 Neut # (Auto) 6.09 Lymph # (Auto) 0.[address] [place] # (Auto) 0.54 Eos # (Auto) 0.01 Baso # (Auto) 0.02 Immature Gran # (Auto) 0.01 PT 10.4 INR 1.0 APTT 23.6 PTT Ratio 0.9 Sodium 138 Potassium 4.1 Chloride 104 Carbon Dioxide 29 Anion Gap 5.0 BUN 11 Creatinine 0.89 Est Cr Clr Drug Dosing 73.7 Est GFR ( Amer) 99.7 Est GFR (Non-Af Amer) 86.0 BUN/Creatinine Ratio 11.8 Glucose 124 H Calcium 9.7 Total Bilirubin 1.0 AST 31 ALT 32 Alkaline Phosphatase 71 Troponin I 1.180 H* Total Protein 7.1 Albumin 3.4 Globulin 3.7 Albumin/Globulin Ratio 0.9 Lipase 171 COVID-19 Eval Order SARS-CoV-2 (PCR) 05/03/21 05/03/21 15:53 15:53 WBC RBC Hgb Hct MCV MCH MCHC RDW Std Deviation RDW Coeff of Jeet Plt Count MPV Immature Gran % (Auto) Neut % (Auto) Lymph % (Auto) [facility] % (Auto) Eos % (Auto) Baso % (Auto) Neut # (Auto) Lymph # (Auto) [facility] # (Auto) Eos # (Auto) Baso # (Auto) Immature Gran # (Auto) PT INR APTT PTT Ratio Sodium Potassium Chloride Carbon Dioxide Anion Gap BUN Creatinine Est Cr Clr Drug Dosing Est GFR ( Amer) Est GFR (Non-Af Amer) BUN/Creatinine Ratio Glucose Calcium Total Bilirubin AST ALT Alkaline Phosphatase Troponin I Total Protein Albumin Globulin Albumin/Globulin Ratio Lipase COVID-19 Eval Order Covid19 at [facility] SARS-CoV-2 (PCR) NEGATIVE Diagnostic Findings ECG personally reviewed: ECG 05/03/2021: Sinus rhythm 66 beats per minute. Nonspecific ST abnormality. Possible LVH. Labs reviewed. Chest x-ray 05/03/2021: No acute process per Radiology. Medications Administered Current Inpatient Medications Heparin Sodium/Dextrose (Heparin Sodium/Dextrose) 25,000 units in 500 mls @ 26 mls/hr IV .[id number] [facility]; Protocol Stop: 06/02/21 15:44 Last Admin: 05/03/21 15:49 Dose: 1,300 units/hr, 26 mls/hr Documented by: Nitroglycerin (Nitroglycerin 2% Ointment 30gm Tube) 1 inch EXT Q6H [facility] Stop: 06/02/21 16:44 Last Admin: 05/03/21 16:42 Dose: 1 inch Documented by: PG Care Time/CCT Total # of Minutes Spent Total Time Spent with Patient: Total time spent is greater than 50% in coordination of care (as documented) at patient's floor/unit and/or counseling patient: Coding Level of Care Code 94942 Initial Inpt Care Lvl 3 Diagnoses Non-ST elevation (NSTEMI) myocardial infarction I21.4 Coronary artery disease I25.10 S/P CABG x 3 Z95.1 Hypertension I10 Dyslipidemia E78.5
--- NOTE | 2021-05-03 19:26 | History & Physical Report ---
Date of Service May 03, 2021 Assessment & Plan (1) Non-ST elevation (NSTEMI) myocardial infarction: Pt received Brilinta in ER - cont ASA, beta dar, statin, NTG, full- dose heparin - for cath AM per cardiology - serial trops and echo ordered. (2) Hypothyroidism: Cont Synthroid (3) Dyslipidemia: Cont statin - receives high-intensity with Crestor 20mg (4) Hypertension: Cont metoprolol, lisinopril, NTG (5) Polymyalgia rheumatica: Cont prednisone Admission and Anticipated Discharge Date Admission Date: 05/03/21 Anticipated date of discharge: 05/05/21 History of Present Illness Chief Complaint: CP Primary Care Provider: Ilana Munguia, 71 y/o M Hx HTN, HLD, hypothyroid, PMR, CAD - CABG 2014. Presenting with chest pressure. He denies nausea, vomiting or diaphoresis. The pressure was relieved with with NTG x 3 in the ER. His SBP was ~ 180 on arrival and responded well to NTG alone. Initial labs were notable for a trop of 1.18. An EKG showed a NSR. The pt was evaluated by his pest controller assistant while in the ER and an AM catheterization is planned. Allergies Allergy/AdvReac Type Severity Reaction Status Date / Time No Known Drug Allergies Allergy Unknown NONE Verified 05/03/21 16:22 Food Additives Allergy Unknown SPICES-SYMPTOMS Uncoded 05/03/21 16:22 CHEST PRESSURE? Home Medications Medication Instructions Recorded Confirmed Type calcium carbonate 600 mg (1,500 1 tab PO QAM tab 06/25/19 05/03/21 History mg)-vitamin D3 200 unit tablet nitroglycerin 0.4 mg sublingual 0.4 mg SL ONCE PRN #1 tab 06/25/19 05/03/21 History tablet aspirin 81 mg tablet,delayed 81 mg PO Q2D #30 tab 03/31/20 05/03/21 History release vitamin E (dl, acetate) 400 unit 400 mg PO QAM 08/20/20 05/03/21 History capsule sildenafil 100 mg tablet 100 mg PO DAILY PRN #30 tab 12/31/20 05/03/21 Rx levothyroxine 75 mcg PO QAM 05/03/21 05/03/21 History lisinopril 5 mg PO QAM 05/03/21 05/03/21 History metoprolol succinate 25 mg PO QAM 05/03/21 05/03/21 History prednisone 10 mg PO DAILY 05/03/21 05/03/21 History rosuvastatin 20 mg PO QAM 05/03/21 05/03/21 History Past Med/Surg History Medical History (Updated 05/03/21 @ 17:33 by Brice Spencer MD) Anemia Coronary artery disease Dyslipidemia GERD (gastroesophageal reflux disease) History of [place] (myocardial infarction) Hypertension Hypothyroidism Mild cognitive impairment Polymyalgia rheumatica Prediabetes Vitamin D deficiency Surgical History (Updated 05/03/21 @ 17:33 by Brice Spencer MD) S/P CABG x 3 (03/2015) Family History Father Coronary heart disease Myocardial infarction Hx of CABG, Onset Age: 49 Dementia Grandfather (Paternal) , 62 Coronary heart disease Myocardial infarction Sister Multiple sclerosis Aunt Dementia paternal aunt Denies family history of Ovarian cancer Prostate cancer Breast cancer Colorectal cancer Social History Smoking Status: Never smoker Hx Alcohol Use: Yes Alcohol type: beer and wine Alcohol Intake Frequency: 4 or More x per/Week Hx Substance Use: No Preferred Language: Kyrgyz Communication Ability: Effective Visual Impairment: No Limitations Hearing Ability: Normal Beliefs That Will Affect Care: None marital status: Current Living Situation: Spouse current occupational status: retired 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, 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[facility] [employer] Feels Safe at Home: Yes Childhood Exposure to Second-Hand Smoke: Yes caffeine: Yes (Coffee 10-12 cups per day.) during the past year weight has: remained stable Dental Care, Regularly: Yes Physical Activity Frequency: 5-6 Times per Week Physical Activity Frequency Comment: walking Seatbelt Use: always Sunscreen Use: Yes Review of Systems Review of Systems: Gen: Denies fevers, night sweats, rigors, fatigue, malaise, weight loss/gain ENT: Denies congestion, throat pain, hearing loss Eyes: Denies acute visual changes CV: Chest pain as above Pulmonary: Denies SOB, cough, wheezing GI: Denies N/V, diarrhea, constipation Neuro: Denies acute or unilateral weakness, acute gait impairment, headache or acute visual changes Musculoskeletal: Denies joint pain, inflammation Endocrine: Denies polydipsia, polyuria Skin: Denies acute rashes or ulcers Physical Exam Physical Exam: General: AAO x 3, no distress ENT: No erythema or exudates, no thrush Eyes: YANDEL, EOMI Head and neck: Normocephalic, atraumatic, No JVD, neck is supple. Chest/heart: Nontender, S1,2, RRR, no murmurs, no gallops Lungs: CTAB, no wheezing or crackles Abdomen: Nontender, nondistended, BS+ Neuro: AAO x 3, speech is clear, no unilateral weakness or loss of sensation, coordination intact Musculoskeletal: No joint inflammation, muscle tenderness, FROM Skin: No acute rashes or ulcers Extremities: No clubbing, cyanosis, edema Results & Data Results & Data ([facility]) Vital Signs (Past 12 Hours) Vital Signs Temp Pulse Pulse Resp BP BP Pulse Ox 05/03/21 18:10 56 L 15 112/64 97 05/03/21 18:05 55 L 22 113/68 98 05/03/21 18:01 56 L 17 97 05/03/21 18:00 55 L 16 119/64 97 05/03/21 17:55 56 L 13 103/71 97 05/03/21 17:50 59 L 14 117/74 97 05/03/21 17:45 54 L 10 L 123/69 99 05/03/21 17:40 61 14 121/69 98 05/03/21 17:35 56 L 15 117/69 96 05/03/21 17:31 58 L 17 98 05/03/21 17:30 66 18 128/69 98 05/03/21 17:25 59 L 17 125/73 98 05/03/21 17:20 60 20 128/68 98 05/03/21 17:15 56 L 17 124/70 99 05/03/21 17:11 58 L 21 97 05/03/21 17:10 62 21 125/71 97 05/03/21 17:05 58 L 17 117/72 99 05/03/21 17:01 65 14 98 05/03/21 17:00 62 18 139/74 98 05/03/21 16:55 58 L 13 141/78 H 98 05/03/21 16:50 63 13 133/79 99 05/03/21 16:45 61 13 142/84 H 97 07/06/21 16:41 57 L 16 96 05/03/21 16:40 65 15 147/80 H 96 05/03/21 16:35 65 20 150/83 H 94 05/03/21 16:31 72 15 96 05/03/21 16:30 70 22 140/82 95 05/03/21 16:25 66 19 159/80 H 98 05/03/21 16:20 63 16 186/98 H 99 05/03/21 16:01 62 23 167/82 H 98 05/03/21 16:00 58 L 17 05/03/21 15:46 63 16 98 05/03/21 15:30 64 15 134/77 99 05/03/21 15:03 59 L 20 97 05/03/21 14:43 59 L 20 153/88 H 97 05/03/21 14:25 97 05/03/21 14:14 97.9 F 74 16 142/76 H 97 Code Status & VTE Plan VTE Prophylaxis Plan VTE Prophylaxis will be ordered: Yes PG Care Time/CCT Total # of Minutes Spent Total Time Spent with Patient: Total time spent is greater than 50% in coordination of care (as documented) at patient's floor/unit and/or counseling patient: total time for this admit including review of labs, meds, imaging, records - discussion with pt, daughter, pest controller assistant, ER attending - 45 min Coding Level of Care Code 64733 Initial Inpt Care Lvl 3 Diagnoses Non-ST elevation (NSTEMI) myocardial infarction I21.4 Hypothyroidism E03.9 Dyslipidemia E78.5 Hypertension I10 Polymyalgia rheumatica M35.3
[2021-05-03] MEDS ORDERED: NITROGLYCERIN SL 0.4 MG/TAB TAB SL PRN (20:59)
[2021-05-03] MEDS ORDERED: MoRPHine SULFATE 2 MG/ML CARP IV PRN (20:59)
[2021-05-03] MEDS ORDERED: ACETAMINOPHEN 325 MG TAB PO PRN (20:59)
[2021-05-03] MEDS ORDERED: Heparin IV Adult Wt-Based Standard *NO* Bolus Protocol ONE (20:59)
[2021-05-03] MEDS ORDERED: SODIUM CHLORIDE 0.9% 1000ML 1,000 ML IV SCH (21:00)
[2021-05-03 23:54] LABS: Partial Thromboplastin Ratio > 5.3
[2021-05-04] MEDS ORDERED: NITROGLYCERIN 2% OINTMENT 30GM TUBE EXT SCH
[2021-05-04 00:03] LABS: Partial Thromboplastin Time > 139.0 Seconds (21.0-31.0)
[2021-05-04 01:56] LABS: Partial Thromboplastin Ratio 3.9
[2021-05-04 02:02] LABS: Partial Thromboplastin Time 102.3 Seconds (21.0-31.0)
[2021-05-04 03:06] LABS: Partial Thromboplastin Time 51.4 Seconds (21.0-31.0)
[2021-05-04] MEDS: NITROGLYCERIN 2% OINTMENT 30GM TUBE EXT SCH ×3 (04:38→18:48)
[2021-05-04] MEDS: LEVOTHYROXINE SODIUM 75 MCG TABLET PO SCH (05:33)
--- NOTE | 2021-05-04 06:29 | Electrocardiogram Report ---
Test Reason : Blood Pressure : / mmHG Vent. Rate : 066 BPM Atrial Rate : 066 BPM P-R Int : 146 ms QRS Dur : 088 ms QT Int : 428 ms P-R-T Axes : 025 009 038 degrees QTc Int : 448 ms Normal sinus rhythm Minimal voltage criteria for LVH, may be normal variant Nonspecific ST abnormality When compared with ECG of 08-JUL-2019 10:13, No significant change was found Confirmed by Brice Spencer ([id number]) on 05/04/2021 6:28:47 AM Referred By: Confirmed By:Brice Spencer
--- NOTE | 2021-05-04 09:34 | Cardiology Progress Note ---
Date of Service May 04, 2021 Assessment & Plan (1) Non-ST elevation OK (NSTEMI): (2) Coronary artery disease: (3) S/P CABG x 3: (4) Hypertension: (5) Dyslipidemia: ASSESSMENT/PLAN: 1. NSTEMI: Asymptomatic with medical therapy. Peak troponin was 12.6. Patent bypass grafts with occluded LMCA on cardiac catheterization. Medical therapy recommended. Will replace nitroglycerin paste with isosorbide mononitrate. Recommend hospitalization for 48 hours from onset. Continue aspirin 81 mg daily. Start Plavix 75 mg daily tomorrow for 1 year. Will DC Brilinta after tonight's dose. Cardiac rehabilitation recommended and he was agreeable. 2. CAD s/p CABG x 3: No further angina. No heart failure symptoms. Continue anti-platelet therapy, high-intensity statin therapy, and beta-dar. He has been well beta blocked with heart rates as slow as the 40s to 50s. Resume home dose of SHARA-inhibitor. 3. Hypertension: Blood pressure has been mostly elevated. He has not been receiving his home dose of lisinopril. Start lisinopril 5 mg daily, which is his home dose. He had been taking metoprolol succinate 25 mg daily at home. Resume home beta-dar. Will give a dose of metoprolol tartrate now until he receives succinate in the morning. 4. Dyslipidemia: Continue high-intensity statin therapy. LDL has been well controlled. 5. Disposition: Cardiology will continue to follow along. Patient care has been communicated to Dr. De La Fuente of the primary hospitalist service. If he continues to do well, hopefully discharge tomorrow afternoon from a cardiology standpoint. Questions were answered at the bedside with he and his daughter. Admission and Anticipated Discharge Date Admission Date: May 03, 2021 Subjective No further chest pain overnight since the emergency department. Denies shortness of breath, syncope, near-syncope, palpitations, or edema. No reported bleeding. Headache resolved. He underwent cardiac catheterization this morning. His bypass grafts were patent however his LMCA has become occluded. Medical therapy was recommended. There was concern for left subclavian artery injury/dissection. Additional angiography was performed of the left subclavian from the right femoral artery and no dissection was noted. He remained asymptomatic. This was discussed with patient in person, his via telephone, and his daughter Jana at the bedside. Review of systems: As above. Physical Exam Physical Exam: Gen.: No acute distress. Alert and oriented. HEENT: Anicteric sclera. Neck: No JVD. Cardiac: No ventricular heave. Regular. Normal S1-S2. No murmurs, rubs, or gallops. Pulmonary: Clear to auscultation bilaterally without wheezes, rales, or rhonchi. Abdomen: Soft, nontender, nondistended, with normoactive bowel sounds. No bruits noted. Extremities: 2+ radial pulses bilaterally. Right femoral access site was wit hout hematoma. 2+ posterior tibialis pulses bilaterally. No edema or cyanosis. Psychiatric: Affect appears appropriate. Results & Data ([facility]) Vital Signs (Past 12 Hours) Vital Signs Temp Pulse Resp BP Pulse Ox 05/04/21 07:58 36.6 C 50 L 19 125/70 97 05/04/21 03:20 36.8 C 60 17 136/63 97 05/03/21 23:03 36.9 C 63 17 104/56 L 96 Laboratory Results Laboratory Results - last 24 hr 05/03/21 05/03/21 05/03/21 14:36 14:36 15:39 WBC 7.42 RBC 4.57 L Hgb 14.0 Hct 42.1 MCV 92.1 MCH 30.6 MCHC 33.3 RDW Std Deviation 48.0 H RDW Coeff of Jeet 14.2 Plt Count 298 MPV 9.3 Immature Gran % (Auto) 0.1 Neut % (Auto) 82.1 Lymph % (Auto) 10.1 Fergus % (Auto) 7.3 Eos % (Auto) 0.1 Baso % (Auto) 0.3 Neut # (Auto) 6.09 Lymph # (Auto) 0.75 L Fergus # (Auto) 0.54 Eos # (Auto) 0.01 Baso # (Auto) 0.02 Immature Gran # (Auto) 0.01 PT 10.4 INR 1.0 APTT 23.6 PTT Ratio 0.9 Sodium 138 Potassium 4.1 Chloride 104 Carbon Dioxide 29 Anion Gap 5.0 BUN 11 Creatinine 0.89 Est Cr Clr Drug Dosing 73.7 Est GFR ( Amer) 99.7 Est GFR (Non-Af Amer) 86.0 BUN/Creatinine Ratio 11.8 Glucose 124 H Calcium 9.7 Total Bilirubin 1.0 AST 31 ALT 32 Alkaline Phosphatase 71 Troponin I 1.180 H* Total Protein 7.1 Albumin 3.4 Globulin 3.7 Albumin/Globulin Ratio 0.9 Lipase 171 COVID-19 Eval Order SARS-CoV-2 (PCR) 05/03/21 05/03/21 05/03/21 15:53 15:53 23:13 WBC RBC Hgb Hct MCV MCH MCHC RDW Std Deviation RDW Coeff of Jeet Plt Count MPV Immature Gran % (Auto) Neut % (Auto) Lymph % (Auto) Fergus % (Auto) Eos % (Auto) Baso % (Auto) Neut # (Auto) Lymph # (Auto) Fergus # (Auto) Eos # (Auto) Baso # (Auto) Immature Gran # (Auto) PT INR APTT > 139.0 H* PTT Ratio > 5.3 Sodium Potassium Chloride Carbon Dioxide Anion Gap BUN Creatinine Est Cr Clr Drug Dosing Est GFR ( Amer) Est GFR (Non-Af Amer) BUN/Creatinine Ratio Glucose Calcium Total Bilirubin AST ALT Alkaline Phosphatase Troponin I Total Protein Albumin Globulin Albumin/Globulin Ratio Lipase COVID-19 Eval Order Covid19 at [facility] SARS-CoV-2 (PCR) NEGATIVE 05/03/21 05/04/21 05/04/21 23:13 01:12 02:32 WBC RBC Hgb Hct MCV MCH MCHC RDW Std Deviation RDW Coeff of Jeet Plt Count MPV Immature Gran % (Auto) Neut % (Auto) Lymph % (Auto) Fergus % (Auto) Eos % (Auto) Baso % (Auto) Neut # (Auto) Lymph # (Auto) Fergus # (Auto) Eos # (Auto) Baso # (Auto) Immature Gran # (Auto) PT INR APTT 102.3 H* 51.4 H* PTT Ratio 3.9 2.0 Sodium Potassium Chloride Carbon Dioxide Anion Gap BUN Creatinine Est Cr Clr Drug Dosing Est GFR ( Amer) Est GFR (Non-Af Amer) BUN/Creatinine Ratio Glucose Calcium Total Bilirubin AST ALT Alkaline Phosphatase Troponin I 12.600 H* Total Protein Albumin Globulin Albumin/Globulin Ratio Lipase COVID-19 Eval Order SARS-CoV-2 (PCR) 05/04/21 07:15 WBC RBC Hgb Hct MCV MCH MCHC RDW Std Deviation RDW Coeff of Jeet Plt Count MPV Immature Gran % (Auto) Neut % (Auto) Lymph % (Auto) Fergus % (Auto) Eos % (Auto) Baso % (Auto) Neut # (Auto) Lymph # (Auto) Fergus # (Auto) Eos # (Auto) Baso # (Auto) Immature Gran # (Auto) PT INR APTT PTT Ratio Sodium Potassium Chloride Carbon Dioxide Anion Gap BUN Creatinine Est Cr Clr Drug Dosing Est GFR ( Amer) Est GFR (Non-Af Amer) BUN/Creatinine Ratio Glucose Calcium Total Bilirubin AST ALT Alkaline Phosphatase Troponin I 10.300 H* Total Protein Albumin Globulin Albumin/Globulin Ratio Lipase COVID-19 Eval Order SARS-CoV-2 (PCR) Diagnostic Findings Telemetry personally reviewed: Sinus rhythm with sinus bradycardia. No arrhythmia. Cardiac catheterization 05/04/2021: Coronary angiography: 1. LMCA: Proximal LMCA 100%. Heavily calcified LMCA. 2. Left anterior descending: Proximal portion appeared heavily calcified under fluoroscopy. LAD fills via NICHOLAS. LAD is a small caliber vessel with mid 50% stenosis and diffusely diseased proximally. Small D1 and D2. 3. Circumflex: Dominant. Heavily calcified proximally. Proximal circumflex 100%. Circumflex fills via SVG to OM and SVG to circumflex PL. Distal circumflex 80 to 90%. Circumflex fills retrograde from SVG to PL and also a small OM vessel that originates proximal to the distal circumflex stenosis. Small OM vessel fills via SVG and retrograde into the proximal circumflex. Faint left to left collaterals. 4. Right coronary artery: RCA is small and nondominant. No significant CAD. Angiography of bypass grafts: 1. NICHOLAS to LAD: Patent. 2. SVG to OM: Patent with approximately 50% stenosis at the anastomotic site. JOSE-3 flow. 3. SVG to circumflex PL: Patent. Left subclavian artery angiography: 1. No significant stenosis. 2. No evidence of dissection in the subclavian artery or subclavian branch vessels. Medications Administered Current Inpatient Medications Acetaminophen (Acetaminophen 325 Mg Tab) 650 mg PO Q4H PRN PRN Reason: Pain or Fever Stop: 06/02/21 20:58 Last Admin: 05/04/21 04:37 Dose: 650 mg Documented by: Aspirin (Aspirin 81 Mg Ectab) 81 mg PO Q2D@0900 [facility] Stop: 06/04/21 08:59 Heparin Sodium/Dextrose (Heparin Sodium/Dextrose) 25,000 units in 500 mls @ 0 mls/hr IV .Q0M [facility]; Protocol Stop: 06/02/21 15:44 Last Titration: 05/04/21 10:42 Dose: 0 units/hr, 0 mls/hr Documented by: Levothyroxine Sodium (Levothyroxine Sodium 75 Mcg Tablet) 75 mcg PO DAILYBB [facility] Stop: 06/03/21 06:29 Last Admin: 05/04/21 05:33 Dose: 75 mcg Documented by: Morphine Sulfate (Morphine Sulfate 2 Mg/Ml Carp) 2 mg IV Q30M PRN PRN Reason: Chest Pain Stop: 05/17/21 20:58 Nitroglycerin (Nitroglycerin 2% Ointment 30gm Tube) 1 inch EXT Q6H [facility] Stop: 06/02/21 16:44 Last Admin: 05/04/21 18:48 Dose: Not Given Documented by: Nitroglycerin (Nitroglycerin Sl 0.4 Mg/Tab Tab) 0.4 mg SL UD PRN PRN Reason: Chest Pain Stop: 06/02/21 20:58 Prednisone (Prednisone 10 Mg Tablet) 10 mg PO DAILY [facility] Stop: 05/05/21 09:01 Last Admin: 05/04/21 14:35 Dose: 10 mg Documented by: Prednisone (Prednisone 1 Mg Tab) 9 mg PO DAILY [facility] Stop: 05/19/21 09:01 Rosuvastatin Calcium (Rosuvastatin Calcium 20 Mg Tab) 20 mg PO QAM [facility] Stop: 06/03/21 08:59 Last Admin: 05/04/21 14:35 Dose: 20 mg Documented by: Ticagrelor (Ticagrelor 90 Mg Tab) 90 mg PO BID [facility] Stop: 06/03/21 08:59 Last Admin: 05/04/21 14:35 Dose: 90 mg Documented by: PG Care Time/CCT Total # of Minutes Spent Total Time Spent with Patient: Total time spent is greater than 50% in coordination of care (as documented) at patient's floor/unit and/or counseling patient: Coding Level of Care Code 56373 Subseq Hosp Care Lvl 3 Diagnoses Non-ST elevation OK (NSTEMI) I21.4 Coronary artery disease I25.10 S/P CABG x 3 Z95.1 Hypertension I10 Dyslipidemia E78.5
[2021-05-04 10:28] LABS: Partial Thromboplastin Ratio 2.2
[2021-05-04 10:30] LABS: Partial Thromboplastin Time 58.5 Seconds (21.0-31.0)
[2021-05-04] MEDS ORDERED: niCARdipine HCL INJ 2.5 MG/ML 10 ML AMP ONE (11:24)
[2021-05-04] MEDS ORDERED: NITROGLYCERIN/D5W 100MCG/ML 20ML SYR ONE (11:27)
[2021-05-04] MEDS ORDERED: HEPARIN (PORCINE) 1000 UNIT/ML 10 ML (CATH LAB USE ONLY) ONE (11:28)
[2021-05-04] MEDS ORDERED: MIDAZOLAM HCL 1 MG/ML 2ML VIAL ONE (11:29)
[2021-05-04] MEDS ORDERED: fentaNYL citrate 100 MCG/2 ML VIAL ONE (11:29)
--- NOTE | 2021-05-04 11:31 | Pre Anesthesia Assessment ---
Date of Service May 04, 2021 Pre Sedation Assessment Vital Signs Temp Pulse Pulse Pulse Resp BP BP 05/04/21 08:00 52 L 05/04/21 07:58 36.6 C 50 L 19 125/70 05/04/21 03:20 36.8 C 60 17 136/63 05/03/21 23:03 36.9 C 63 17 104/56 L 05/03/21 21:04 36.5 C 52 L 12 106/57 L 05/03/21 20:01 55 L 19 05/03/21 20:00 51 L 16 121/58 L 05/03/21 19:31 50 L 14 05/03/21 19:30 49 L 17 113/60 05/03/21 19:01 55 L 26 H 05/03/21 19:00 55 L 14 119/63 05/03/21 18:31 57 L 20 05/03/21 18:30 54 L 12 115/66 05/03/21 18:17 53 L 18 130/73 05/03/21 18:11 55 L 12 05/03/21 18:10 56 L 15 112/64 05/03/21 18:05 55 L 22 113/68 05/03/21 18:01 56 L 17 05/03/21 18:00 55 L 16 119/64 05/03/21 17:55 56 L 13 103/71 05/03/21 17:50 59 L 14 117/74 05/03/21 17:45 54 L 10 L 123/69 05/03/21 17:40 61 14 121/69 05/03/21 17:35 56 L 15 117/69 05/03/21 17:31 58 L 17 05/03/21 17:30 66 18 128/69 05/03/21 17:25 59 L 17 125/73 05/03/21 17:20 60 20 128/68 05/03/21 17:15 56 L 17 124/70 05/03/21 17:11 58 L 21 05/03/21 17:10 62 21 125/71 05/03/21 17:05 58 L 17 117/72 05/03/21 17:01 65 14 05/03/21 17:00 62 18 139/74 05/03/21 16:55 58 L 13 141/78 H 05/03/21 16:50 63 13 133/79 05/03/21 16:45 61 13 142/84 H 05/03/21 16:41 57 L 16 05/03/21 16:40 65 15 147/80 H 05/03/21 16:35 65 20 150/83 H 05/03/21 16:31 72 15 05/03/21 16:30 70 22 140/82 05/03/21 16:25 66 19 159/80 H 05/03/21 16:20 63 16 186/98 H 05/03/21 16:01 62 23 167/82 H 05/03/21 16:00 58 L 17 05/03/21 15:46 63 16 05/03/21 15:30 64 15 134/77 05/03/21 15:03 59 L 20 05/03/21 14:43 59 L 20 153/88 H 05/03/21 14:25 05/03/21 14:14 36.6 C 74 16 142/76 H Pulse Ox 05/04/21 08:00 05/04/21 07:58 97 05/04/21 03:20 97 05/03/21 23:03 96 05/03/21 21:04 98 05/03/21 20:01 97 05/03/21 20:00 97 05/03/21 19:31 97 05/03/21 19:30 97 05/03/21 19:01 96 05/03/21 19:00 99 05/03/21 18:31 98 05/03/21 18:30 99 05/03/21 18:17 98 05/03/21 18:11 05/03/21 18:10 97 05/03/21 18:05 98 05/03/21 18:01 97 05/03/21 18:00 97 05/03/21 17:55 97 05/03/21 17:50 97 05/03/21 17:45 99 05/03/21 17:40 98 05/03/21 17:35 96 05/03/21 17:31 98 05/03/21 17:30 98 05/03/21 17:25 98 05/03/21 17:20 98 05/03/21 17:15 99 05/03/21 17:11 97 05/03/21 17:10 97 05/03/21 17:05 99 05/03/21 17:01 98 05/03/21 17:00 98 05/03/21 16:55 98 05/03/21 16:50 99 05/03/21 16:45 97 05/03/21 16:41 96 05/03/21 16:40 96 05/03/21 16:35 94 05/03/21 16:31 96 05/03/21 16:30 95 05/03/21 16:25 98 05/03/21 16:20 99 05/03/21 16:01 98 05/03/21 16:00 05/03/21 15:46 98 05/03/21 15:30 99 05/03/21 15:03 97 05/03/21 14:43 97 05/03/21 14:25 97 05/03/21 14:14 97 Cardiovascular + regular rhythm and + bradycardic Respiratory normal respiratory effort, lungs clear to auscultation Pre-Sedation Airway Assessment Smoking Status: Never smoker Short, Thick Neck: No Thyromental Distance: > or= 3.5 Finger Breadths Oral Cavity: + WNL Mallampati Class: III ASA: ASA3 NPO Status Date of Last Intake of Fluids: 05/03/21 Time of Last Intake of Fluids: 08:00 Date of Last Intake of Solid Food: 05/03/21 Time of Last Intake of Solid Foods: 08:00 Procedure Planning Contraindications for Sedation: none Current Medications Reviewed: Yes Notes The planned sedation has been discussed with the patient. Informed Consent was obtained. I have identified the patient, determined the appropriateness of sedation and have assessed the patient immediately prior to the procedure. All medicine(s) and interventions are by my order.
--- NOTE | 2021-05-04 12:35 | Hospitalist Progress Note ---
Date of Service May 04, 2021 Assessment & Plan (1) Non-ST elevation (NSTEMI) myocardial infarction: Troponin peaked at 12.6 on 05/03 overnight. - Continue ASA, beta dar, statin, NTG, full-dose heparin. - Started on Brilinta by cardiology - Echo pending - NPO for cath. Discussed with cardiology. (2) Hypothyroidism: TSH was 1.1 in 12/2020. No signs/symptoms of hypo-/hyperthyroidism. - Continue home Synthroid 75 mcg (3) Hypertension: BP today is 125/70. - Cont metoprolol, lisinopril, NTG (4) Polymyalgia rheumatica: No present flare. - Cont prednisone (5) DVT prophylaxis: On heparin gtt for NSTEMI Admission and Anticipated Discharge Date Admission Date: May 03, 2021 Subjective Doing well today. No further chest "fluttering" which is his ischemic symptom. Reports no fevers/chills, chest pain, shortness of breath, abdominal pain, nausea, or vomiting. Physical Exam Constitutional: WD/WN, vitals as above Eyes: EOM intact bilaterally; no conjunctival abnormality ENMT: external ear and nose normal, oropharynx normal Neck: trachea midline, no thyromegaly normal visual inspection Respiratory: normal respiratory effort, lungs clear to auscultation no respiratory distress Cardiovascular: RRR, no murmur, no edema Gastrointestinal (Abdomen): Inspection/Auscultation: abdomen normal to inspec tion; abdomen not distended Musculoskeletal: no cyanosis or clubbing, extremities motor strength 5/5 Skin: no rashes, warm and dry Neurologic: moves all extremities and awake Psychiatric: Orientation: alert, oriented to person and cooperative Results & Data Results & Data ([facility]) Vital Signs (Past 12 Hours) Vital Signs Temp Pulse Pulse Resp BP Pulse Ox 05/04/21 08:00 52 L 05/04/21 07:58 36.6 C 50 L 19 125/70 97 05/04/21 03:20 36.8 C 60 17 136/63 97 PG Care Time/CCT Total # of Minutes Spent Total Time Spent with Patient: Total time spent is greater than 50% in coordination of care (as documented) at patient's floor/unit and/or counseling patient: Coding Level of Care Code 14192 Subseq Hosp Care Lvl 3 Diagnoses Non-ST elevation (NSTEMI) myocardial infarction I21.4 Hypothyroidism E03.9 Hypertension I10 Polymyalgia rheumatica M35.3 DVT prophylaxis Z29.9
--- NOTE | 2021-05-04 13:43 | Cardiac Catheterization ---
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 Cardiac Status Clinical evaluation leading to the procedure CAD Presenation: Non STEMI Anginal Classification: CCS IV Heart Failure: No Cardiogenic Shock within 24 Hours: No Cardiac Arrest within 24 Hours: No Imaging Studies Past 6 Months: Yes Stress Studies Past 6 Months: No Standard Exercise Test: No Stress Echocardiogram: No Stress Testing w/SPECT MPI: No Cardiac CTA: No Coronary Anatomy Dominant: Left Left Ventricular Angiography EF (%): n/a Diagnostic Physicians Name: Brice Spencer MD Status: Elective Closure Device Percutaneous Entry Location: Radial (and right femoral) Closure Device: Radial Band (and manual pressure of right femoral access site) Recommendations: Medical Therapy and/or Counseling Cardiac Cath Procedure Full Procedure Date May 04, 2021 Pre-Procedure Diagnosis Pre-Procedure Diagnosis: Non STEMI AUC Score AUC Score: 9 Post-Procedure Diagnosis Post-Procedure Diagnosis: Severe CAD and Normal Intracardiac Pressures Procedure(s) Performed Procedure(s) Performed: Coronary Angiography, Left Heart Cath, Ultrasound Guided Vascular Access and Bypass Graft Angiography Nurse Esthetician Brice Spencer MD Cat Scan Tech(s) Showers Estimated Blood Loss Estimated Blood Loss: < 30 ml Medication(s) Medication(s): Fentanyl, Heparin, Lidocaine 1%, Nicardipine and Versed Summary of Findings Procedures: 1. Coronary angiography 2. Angiography of bypass grafts 3. Left heart catheterization 4. Left subclavian angiography 5. Ultrasound guidance for arterial access 6. Moderate sedation Indication: 71-year-old gentleman with a history significant for multivessel CAD s/p CABG x 3 who presented with NSTEMI and a peak troponin of 12.6. Coronary angiography: 1. LMCA: Proximal LMCA 100%. Heavily calcified LMCA. 2. Left anterior descending: Proximal portion appeared heavily calcified under fluoroscopy. LAD fills via NICHOLAS. LAD is a small caliber vessel with mid 50% stenosis and diffusely diseased proximally. Small D1 and D2. 3. Circumflex: Dominant. Heavily calcified proximally. Proximal circumflex 100%. Circumflex fills via SVG to OM and SVG to circumflex PL. Distal circumflex 80 to 90%. Circumflex fills retrograde from SVG to PL and also a small OM vessel that originates proximal to the distal circumflex stenosis. Small OM vessel fills via SVG and retrograde into the proximal circumflex. Faint left to left collaterals. 4. Right coronary artery: RCA is small and nondominant. No significant CAD. Angiography of bypass grafts: 1. NICHOLAS to LAD: Patent. 2. SVG to OM: Patent with approximately 50% stenosis at the anastomotic site. JOSE-3 flow. 3. SVG to circumflex PL: Patent. Left subclavian artery angiography: 1. No significant stenosis. 2. No evidence of dissection in the subclavian artery or subclavian branch vessels. Ultrasound guidance for arterial access: 1. The right femoral artery was cannulated with access needle under ultrasound guidance on the first stick. A 5 Palestinian sheath was placed over a wire. Procedural notes: 1. Coronary angiography and bypass graft angiography was performed via the left radial artery. 2. After removing the JR 4 diagnostic catheter and placing IDANIA diagnostic catheter within the left subclavian over a wire, there appeared to be staining within the left subclavian artery when attempting to locate the NICHOLAS. Because of this, the decision was made to perform further imaging to ensure no significant dissection or propagation of dissection in branch vessels. 3. Right femoral arterial access was obtained and left subclavian angiography was performed. No dissection was noted. Left Heart Catheterization: 1. Left ventriculography was not performed. 2. No significant aortic stenosis. Peak to peak gradient across the aortic valve was 0. 3. Normal LVEDP; 8 mmHg. Moderate sedation: 1. Sedation start time: 11:35 AM 2. Sedation end time: 1:12 PM Impression: 1. Severe hughes CAD, including occluded LMCA. 2. Dominant circumflex. 3. Moderate CAD involving anastomosis of SVG to small circumflex OM vessel. 4. Patent NICHOLAS to LAD and SVG to circumflex PL. 5. No significant left subclavian artery stenosis or dissection. 6. Normal left-sided filling pressure. 7. No aortic stenosis. Plan: 1. Medical management of CAD/NSTEMI. 2. Images were reviewed with Dr. Huang of interventional cardiology. 3. Optimize medical therapy. Hemodynamics Rest Ao:: 150/58 Final Ao: 162/63 LV: 143/1/8 Recommendations Recommendations: Medical Therapy and/or Counseling Specimens Specimens: None Radiation Exposure (mGy) 3118 mGy. Fluoro time 18.5 min Contrast (mls) 175 ml Procedural Complication(s) None Disposition PCU I attest to the content of the Intraoperative Record and any orders documented therein. Any exceptions are noted below. [facility] Card Cath Procedure Codes Cardiac Catheterization Procedure 1: Cardiovascular Cath Procedures: 31763 Coronaries & LHC (+/-LV) & Grafts/IM (arterial & venous) Therapeutic Services & Ancillary Proc Procedure 1: Cardiovascular Tx and Anc Procedures: 48067 Ultrasonic Guidance Vascular Access Moderate Sedation Procedure 1: Sedation/Anesthesia: 83507 Mod Sedation by the same physician;Init15 Min Child Age 5 & Up Procedure 2: Sedation/Anesthesia: 46383 Mod Sedation by the same physician; Ea [id number] Minutes Procedure 3: Sedation/Anesthesia: 55355 Mod Sedation by the same physician; Ea [id number] Minutes Procedure 4: Sedation/Anesthesia: 81246 Mod Sedation by the same physician; Ea [id number] Minutes Procedure 5: Sedation/Anesthesia: 27067 Mod Sedation by the same physician; Ea [id number] Minutes Procedure 6: Sedation/Anesthesia: 54536 Mod Sedation by the same physician; Ea [id number] Minutes PG Care Time/CCT Total # of Minutes Spent Total Time Spent with Patient: Total time spent is greater than 50% in coordination of care (as documented) at patient's floor/unit and/or counseling patient:
[2021-05-04] MEDS: ROSUVASTATIN CALCIUM 20 MG TAB PO SCH (14:35)
[2021-05-04] MEDS: TICAGRELOR 90 MG TAB PO SCH ×2 (14:35→20:59)
[2021-05-04] MEDS: predniSONE 10 MG TABLET PO SCH (14:35)
--- NOTE | 2021-05-04 15:09 | Post Anesthesia Assessment ---
Date of Service May 04, 2021 Post Sedation Assessment Vital Signs Temp Pulse Pulse Pulse Resp BP BP 05/04/21 14:30 49 L 16 131/72 05/04/21 13:45 56 L 18 139/80 05/04/21 13:30 56 L 18 146/80 H 05/04/21 13:25 55 L 18 154/70 H 05/04/21 08:00 52 L 05/04/21 07:58 36.6 C 50 L 19 125/70 05/04/21 03:20 36.8 C 60 17 136/63 05/03/21 23:03 36.9 C 63 17 104/56 L 05/03/21 21:04 36.5 C 52 L 12 106/57 L 05/03/21 20:01 55 L 19 05/03/21 20:00 51 L 16 121/58 L 05/03/21 19:31 50 L 14 05/03/21 19:30 49 L 17 113/60 05/03/21 19:01 55 L 26 H 05/03/21 19:00 55 L 14 119/63 05/03/21 18:31 57 L 20 05/03/21 18:30 54 L 12 115/66 05/03/21 18:17 53 L 18 130/73 05/03/21 18:11 55 L 12 05/03/21 18:10 56 L 15 112/64 05/03/21 18:05 55 L 22 113/68 05/03/21 18:01 56 L 17 05/03/21 18:00 55 L 16 119/64 05/03/21 17:55 56 L 13 103/71 05/03/21 17:50 59 L 14 117/74 05/03/21 17:45 54 L 10 L 123/69 05/03/21 17:40 61 14 121/69 05/03/21 17:35 56 L 15 117/69 05/03/21 17:31 58 L 17 05/03/21 17:30 66 18 128/69 05/03/21 17:25 59 L 17 125/73 05/03/21 17:20 60 20 128/68 05/03/21 17:15 56 L 17 124/70 05/03/21 17:11 58 L 21 05/03/21 17:10 62 21 125/71 05/03/21 17:05 58 L 17 117/72 05/03/21 17:01 65 14 05/03/21 17:00 62 18 139/74 05/03/21 16:55 58 L 13 141/78 H 05/03/21 16:50 63 13 133/79 05/03/21 16:45 61 13 142/84 H 05/03/21 16:41 57 L 16 05/03/21 16:40 65 15 147/80 H 05/03/21 16:35 65 20 150/83 H 05/03/21 16:31 72 15 05/03/21 16:30 70 22 140/82 05/03/21 16:25 66 19 159/80 H 05/03/21 16:20 63 16 186/98 H 05/03/21 16:01 62 23 167/82 H 05/03/21 16:00 58 L 17 05/03/21 15:46 63 16 05/03/21 15:30 64 15 134/77 Pulse Ox 05/04/21 14:30 96 05/04/21 13:45 96 05/04/21 13:30 96 05/04/21 13:25 97 05/04/21 08:00 05/04/21 07:58 97 05/04/21 03:20 97 05/03/21 23:03 96 05/03/21 21:04 98 05/03/21 20:01 97 05/03/21 20:00 97 05/03/21 19:31 97 05/03/21 19:30 97 05/03/21 19:01 96 05/03/21 19:00 99 05/03/21 18:31 98 05/03/21 18:30 99 05/03/21 18:17 98 05/03/21 18:11 05/03/21 18:10 97 05/03/21 18:05 98 05/03/21 18:01 97 05/03/21 18:00 97 05/03/21 17:55 97 05/03/21 17:50 97 05/03/21 17:45 99 05/03/21 17:40 98 05/03/21 17:35 96 05/03/21 17:31 98 05/03/21 17:30 98 05/03/21 17:25 98 07/06/21 17:20 98 05/03/21 17:15 99 05/03/21 17:11 97 05/03/21 17:10 97 05/03/21 17:05 99 05/03/21 17:01 98 05/03/21 17:00 98 05/03/21 16:55 98 05/03/21 16:50 99 05/03/21 16:45 97 05/03/21 16:41 96 05/03/21 16:40 96 05/03/21 16:35 94 05/03/21 16:31 96 05/03/21 16:30 95 05/03/21 16:25 98 05/03/21 16:20 99 05/03/21 16:01 98 05/03/21 16:00 05/03/21 15:46 98 05/03/21 15:30 99 Recovery Score Activity: Moves 4 extremities Respiration: Deep Breath/Cough Circulation: +/-20% PreAnes Value Consciousness: Fully Awake Oxygen Saturation: > 92% On Room Air Post Anesthesia Score: 10 Discharge Sedation Level of Care: Fast Track Phase II Post Sedation Plan On clinical assessment, the patient appears to have tolerated the sedation without complications. Patient is recovering as anticipated. Patient will continue to be monitored by nursing and may be discharged when sedation discharge criteria are met per below protocol. Upon Completions of procedure up to 15 minutes continue every 5 minute vital signs and the P.A.R. score; then discharge to a Phase I or Fast Track to Phase II per the following guidelines: * Discharge Patient to appropriate Phase II area if PAR is 8 or greater or return to pre- procedure baseline. The post - procedure orders will be as directed. * If PAR score is less than 8 or not return to pre-procedure baseline then patient will follow Phase I monitoring till PAR is reached for Phase II. The Phase I may be done in procedure room or may call to secure a Phase I area. * If naloxone or flumazenil are used for reversal, hold in Phase I for continued monitoring from when last reversal dose was given for a minimum of 60 minutes or longer pending the nurse and/or physician discretion of patient condition before discharge to Phase II. Please call the Sedation Physician to re-evaluate and complete post-note for discharge to Phase II area. Do NOT discharge from procedure sedation or Phase 1 until post- sedation evaluation note is complete by procedure /sedation MD Sedation Discharge Instructions to be given to the patient at discharge to home.
[2021-05-04] MEDS ORDERED: METOPROLOL TARTRATE 25 MG TAB PO ONE (20:00)
--- NOTE | 2021-05-04 20:58 | XCELERA ---
[id number] [id number]\[id number]
[2021-05-04] MEDS ORDERED: lisinopril 5 MG TAB PO ONE (21:00)
[2021-05-05] MEDS: LEVOTHYROXINE SODIUM 75 MCG TABLET PO SCH (06:27)
--- NOTE | 2021-05-05 06:34 | Electrocardiogram Report ---
Test Reason : Blood Pressure : / mmHG Vent. Rate : 050 BPM Atrial Rate : 050 BPM P-R Int : 146 ms QRS Dur : 086 ms QT Int : 490 ms P-R-T Axes : 024 013 047 degrees QTc Int : 446 ms Sinus bradycardia Otherwise normal ECG When compared with ECG of 03-MAY-2021 14:25, No significant change was found Confirmed by Brice Spencer ([id number]) on 05/05/2021 6:34:16 AM Referred By: REFERRED SELF Confirmed By:Brice Spencer
[2021-05-05 06:38] LABS: Hematocrit (blood only) 41.7 % (42-52); Hemoglobin 14.1 g/dL (14.0-18.0); Mean Corpuscular Hemoglobin 30.7 pg (25-34); Mean Corpuscular Hgb Conc 33.8 g/dL (32-36); Mean Corpuscular Volume 90.7 fL (80-100); Mean Platelet Volume 8.7 fL (7.4-10.4); Platelet Count 234 K/uL (130-400); RDW Coefficient of Variation 13.9 % (11.5-14.5); RDW Standard Deviation 45.8 fL (36.4-46.3); White Blood Count 7.01 K/uL (4.8-10.8)
[2021-05-05 07:10] LABS: BUN Creatinine Ratio 11.4 (10-20); Calcium 8.9 mg/dl (8.5-10.1); Creatinine Clr Calc Pharmacy 79.9 ml/min; Est GFR (African American) 103.1 ml/min; Potassium 4.4 mmol/L (3.5-5.1)
[2021-05-05] MEDS: predniSONE 10 MG TABLET PO SCH (08:30)
[2021-05-05] MEDS: ROSUVASTATIN CALCIUM 20 MG TAB PO SCH (08:30)
[2021-05-05] MEDS ORDERED: lisinopril 5 MG TAB PO SCH (09:00)
[2021-05-05] MEDS ORDERED: ASPIRIN 81 MG ECTAB PO SCH (09:00)
[2021-05-05] MEDS ORDERED: METOPROLOL SUCC 25MG EXT REL TAB PO SCH (09:00)
[2021-05-05] MEDS ORDERED: ISOSORBIDE MONO EXTENDED REL 30 MG TABCR PO SCH (09:00)
[2021-05-05] MEDS ORDERED: CLOPIDOGREL BISULFATE 75 MG TAB PO SCH (09:00)
--- NOTE | 2021-05-05 09:46 | Cardiology Progress Note ---
Date of Service May 05, 2021 Assessment & Plan (1) Non-ST elevation [place] (NSTEMI): (2) Coronary artery disease: (3) S/P CABG x 3: (4) Hypertension: (5) Dyslipidemia: ASSESSMENT/PLAN: 1. NSTEMI: Asymptomatic with medical therapy. Peak troponin was 12.6. Patent bypass grafts with occluded LMCA on cardiac catheterization. Medical therapy recommended. Continue aspirin 81 mg daily. Plavix 75 mg once daily for 1 year. Continue beta-dar and SHARA-inhibitor at home doses. Started isosorbide mononitrate 30 mg daily. Discussed the fact that he should refrain from sildenafil while on nitrate therapy. If doing well in several weeks, he plans on discontinuing nitrate therapy for this reason. Cardiac rehabilitation recommended and he was agreeable. 2. CAD s/p CABG x 3: No further angina. No heart failure symptoms. Continue anti-platelet therapy, high-intensity statin therapy, SHARA-inhibitor and beta- dar. He has been well beta blocked with mild bradycardia. Recommended that he ambulate in the hallways prior to discharge. 3. Hypertension: Blood pressure has normalized after home medications resumed. Continue SHARA-inhibitor and beta-dar. 4. Dyslipidemia: Continue high-intensity statin therapy. LDL has been well controlled. 5. Disposition: If able to ambulate in the hallways without issue and no complications throughout the remainder of this hospital stay, he can be discharged this afternoon from a cardiology standpoint. Cardiology office is arranging for cardiac rehab. Cardiology office will contact him for follow-up in approximately 1 week. Patient care communicated with Dr. De La Fuente of the primary hospitalist service. Admission and Anticipated Discharge Date Admission Date: May 03, 2021 Subjective He was seen earlier this morning. He denies chest pain, shortness of breath, syncope, near-syncope, palpitations, edema, or bleeding. He has no significant discomfort from his left radial and right femoral cath sites. He has ambulated within his room but not yet the hallway. He tolerated ambulation well. He is agreeable to cardiac rehab. He was unaccompanied in his hospital room. Review of systems: As above. Physical Exam Physical Exam: Gen.: No acute distress. Alert and oriented. HEENT: Anicteric sclera. Neck: No JVD. Cardiac: No ventricular heave. Regular. Normal S1-S2. No murmurs, rubs, or gallops. Pulmonary: Clear to auscultation bilaterally without wheezes, rales, or rhonchi. Abdomen: Soft, nontender, nondistended, with normoactive bowel sounds. No bruits noted. Extremities: 2+ radial pulses bilaterally. Left radial cath site was clean, dry, and intact without erythema or discharge. No significant hematoma. Right femoral access site was without hematoma. 2+ posterior tibialis pulses bilaterally. No edema or cyanosis. Psychiatric: Affect appears appropriate. Results & Data ([facility]) Vital Signs (Past 12 Hours) Vital Signs Temp Pulse Pulse Pulse Resp BP Pulse Ox 05/05/21 07:36 36.9 C 57 L 18 136/78 98 05/05/21 07:20 52 L 05/05/21 04:00 61 05/05/21 03:46 36.9 C 60 18 110/62 97 05/04/21 23:31 36.7 C 53 L 18 154/73 H 95 Laboratory Results Laboratory Results - last 24 hr 05/04/21 05/04/21 05/05/21 09:52 11:42 06:18 WBC 7.01 RBC 4.60 L Hgb 14.1 Hct 41.7 L MCV 90.7 MCH 30.7 MCHC 33.8 RDW Std Deviation 45.8 RDW Coeff of Jeet 13.9 Plt Count 234 MPV 8.7 APTT 58.5 H* PTT Ratio 2.2 Activ Coag Time Kaolin 136 Sodium Potassium Chloride Carbon Dioxide Anion Gap BUN Creatinine Est Cr Clr Drug Dosing Est GFR ( Amer) Est GFR (Non-Af Amer) BUN/Creatinine Ratio Glucose Calcium Magnesium 05/05/21 06:18 WBC RBC Hgb Hct MCV MCH MCHC RDW Std Deviation RDW Coeff of Jeet Plt Count MPV APTT PTT Ratio Activ Coag Time Kaolin Sodium 139 Potassium 4.4 Chloride 106 Carbon Dioxide 30 Anion Gap 3.0 BUN 9 Creatinine 0.82 Est Cr Clr Drug Dosing 79.9 Est GFR ( Amer) 103.1 Est GFR (Non-Af Amer) 89.0 BUN/Creatinine Ratio 11.4 Glucose 90 Calcium 8.9 Magnesium 2.0 Diagnostic Findings Telemetry personally reviewed: Sinus rhythm with sinus bradycardia. No arrhythmia. Echo 05/04/2021: Normal LV size, wall motion, systolic function. EF 60-65%. Mild LVH. Mild left atrial dilation. Mild AI. Mild MR. Normal RVSP. Medications Administered Current Inpatient Medications Acetaminophen (Acetaminophen 325 Mg Tab) 650 mg PO Q4H PRN PRN Reason: Pain or Fever Stop: 06/02/21 20:58 Last Admin: 05/04/21 04:37 Dose: 650 mg Documented by: Aspirin (Aspirin 81 Mg Ectab) 81 mg PO Q2D@0900 [facility] Stop: 06/04/21 08:59 Last Admin: 05/05/21 08:31 Dose: 81 mg Documented by: Clopidogrel Bisulfate (Clopidogrel Bisulfate 75 Mg Tab) 75 mg PO [facility] Stop: 06/04/21 08:59 Last Admin: 05/05/21 08:31 Dose: 75 mg Documented by: Heparin Sodium/Dextrose (Heparin Sodium/Dextrose) 25,000 units in 500 mls @ 0 mls/hr IV .Q0M [facility]; Protocol Stop: 06/02/21 15:44 Last Titration: 05/04/21 10:42 Dose: 0 units/hr, 0 mls/hr Documented by: Isosorbide Mononitrate (Isosorbide [place] Extended Rel 30 Mg Tabcr) 30 mg PO [facility] Stop: 06/04/21 08:59 Last Admin: 05/05/21 08:32 Dose: 30 mg Documented by: Levothyroxine Sodium (Levothyroxine Sodium 75 Mcg Tablet) [facility] Stop: 06/03/21 06:29 Last Admin: 05/05/21 06:27 Dose: 75 mcg Documented by: Lisinopril (Lisinopril 5 Mg Tab) 5 mg PO [facility] Stop: 06/04/21 08:59 Last Admin: 05/05/21 08:32 Dose: 5 mg Documented by: Metoprolol Succinate (Metoprolol Succ 25mg Ext Rel Tab) 25 mg PO [facility] Stop: 06/04/21 08:59 Last Admin: 05/05/21 08:31 Dose: 25 mg Documented by: Morphine Sulfate (Morphine Sulfate 2 Mg/Ml Carp) 2 mg IV Q30M PRN PRN Reason: Chest Pain Stop: 05/17/21 20:58 Nitroglycerin (Nitroglycerin Sl 0.4 Mg/Tab Tab) 0.4 mg SL UD PRN PRN Reason: Chest Pain Stop: 06/02/21 20:58 Prednisone (Prednisone 1 Mg Tab) 9 mg PO DAILY [facility] Stop: 05/19/21 09:01 Rosuvastatin Calcium (Rosuvastatin Calcium 20 Mg Tab) 20 mg PO QAM [facility] Stop: 06/03/21 08:59 Last Admin: 05/05/21 08:30 Dose: 20 mg Documented by: PG Care Time/CCT Total # of Minutes Spent Total Time Spent with Patient: Total time spent is greater than 50% in coordination of care (as documented) at patient's floor/unit and/or counseling patient: Coding Level of Care Code 32564 Subseq Hosp Care Lvl 3 Diagnoses Non-ST elevation [place] (NSTEMI) I21.4 Coronary artery disease I25.10 S/P CABG x 3 Z95.1 Hypertension I10 Dyslipidemia E78.5
--- NOTE | 2021-05-05 18:18 | Discharge Summary ---
Date of Service May 05, 2021 Admission HPI Per Admitting Provider 71 y/o M Hx HTN, HLD, hypothyroid, PMR, CAD - CABG 2014. Presenting with chest pressure. He denies nausea, vomiting or diaphoresis. The pressure was relieved with with NTG x 3 in the ER. His SBP was ~ 180 on arrival and responded well to NTG alone. Initial labs were notable for a trop of 1.18. An EKG showed a NSR. The pt was evaluated by his budget assistant while in the ER and an AM catheterization is planned. Principal Diagnosis NSTEMI Discharge Exam Constitutional WD/WN, vitals as above Eyes EOM intact bilaterally; no conjunctival abnormality ENMT external ear and nose normal, oropharynx normal Neck trachea midline, no thyromegaly normal visual inspection Respiratory normal respiratory effort, lungs clear to auscultation no respiratory distress Cardiovascular RRR, no murmur, no edema Gastrointestinal (Abdomen) Inspection/Auscultation: abdomen normal to inspection; abdomen not distended Musculoskeletal no cyanosis or clubbing, extremities motor strength 5/5 Skin no rashes, warm and dry Neurologic moves all extremities and awake Psychiatric Orientation: alert, oriented to person and cooperative Discharge Data Allergies Allergy/AdvReac Type Severity Reaction Status Date / Time No Known Drug Allergies Allergy Unknown NONE Verified 05/03/21 16:22 Food Additives Allergy Unknown SPICES-SYMPTOMS Uncoded 05/03/21 16:22 CHEST PRESSURE? Consultations 05/03/21 15:35 Consult Cardiology Stat ED Decision to Admit Stat 05/03/21 20:59 Consult Cardiology Routine Procedures Performed Operation Date: 05/04/21 11:00 Actual Procedures p Cath, Left w/Cors Vent Grafts - Brice Spencer MD s Cineradiography w/Routine Exam - Brice Spencer MD s Ultrasound Vascular Access - Brice Spencer MD Ordered Studies 05/04/21 06:42 CL Cath Imgs for PACS use only Routine Hospital Course (1) Non-ST elevation (NSTEMI) myocardial infarction: Troponin peaked at 12.6 on 05/03 overnight. - Continue ASA, beta dar, statin, NTG, full-dose heparin. - Cath on 05/04 showed his left main had fully occluded. Supported by his NICHOLAS bypass graft, but this may have caused the troponin elevation. - Discharged on ASA, Plavix, Imdur, metoprolol. (2) Hypothyroidism: TSH was 1.1 in 12/2020. No signs/symptoms of hypo-/hyperthyroidism. - Continue home Synthroid 75 mcg (3) Hypertension: BP today is 125/70. - Cont metoprolol, lisinopril, NTG (4) Polymyalgia rheumatica: No present flare. - Cont prednisone (5) DVT prophylaxis: On heparin gtt for NSTEMI Total Time Total Time Spent Total Time Spent (In Minutes): 35 Discharge Plan Discharge Items Patient Disposition: Home - Self-Care Reason For Visit: CHEST PAIN Discharge Diagnosis: Heart attack Condition on Discharge: Good Activity: Resume your previous activity Non-emergency contact: Primary Care Provider and Explosive Ordnance Disposal Technician Call non-emergency contact if: your symptoms worsen Follow-up/Referrals: Brice Spencer MD [Physician] - (Dr. Spencer is unavailable.) Ilana Munguia DO [Primary Care Provider] - 05/10/21 9:20 am (Please follow up with Dr. Munguia on Sunday05/10/21 at 9:20 am. Please arrive to the office at 9:05 am for your appointment. If you are unable to keep this appointment, please call the office to reschedule at [phone].) Christel Crowe PA-C [Physician Service Coordinator] - 05/09/21 9:30 am (Dr. Spencer is unavailable. Please follow up with Christel Crowe PA-C on Sunday05/09/21 at 9:30 am. Please arrive to the office at 9:15 am for your appointment. If you are unable to keep this appointment, please call the office to reschedule at [phone].) Diet: Heart Healthy Add Attending Provider Instructions: Leg(femoral) access site: ACTIVITY RECOMMENDATIONS: It is common to feel weak and fatigue for a few days. * Do not drive or operate any motorized equipment for the next three days. * Limit stair usage (2 or 3 trips a day only) for the next three days. * Do not lift anything heavier than 10 pounds for the next three days. * Do not engage in vigorous exercise or any sports for the next five days. * You may shower the day after your procedure, but do not immerse the area for three days. Cleanse the site gently with soap and water. SPECIAL CARE INSTRUCTIONS: * You may replace the pressure dressing or band-aid the morning after the procedure. * After your procedure, it is normal to have a small bruise or small lump at the site. Examine your site daily for any change in the bruise or lump, redness, swelling, drainage or numbness. Notify your doctor if any change. BLEEDING: * If there is a small amount of bleeding at the site, lie down and apply firm pressure with a clean cloth for ten minutes. When the bleeding stops, lie quietly keeping the procedure limb straight for six hours. Notify your doctor as soon as possible. * If the bleeding does not stop after ten minutes or if there is a large amount of bleeding or spurting, call 911 immediately. Continue to lie down and hold firm pressure until help arrives. SKIN IRRITATION: * You may experience some redness and/or swelling in the area where radiation was administered. If any skin irritation occurs, please contact your family physician. Wrist (radial) access site: ACTIVITY RECOMMENDATIONS: Excess manipulation of the wrist should be avoided for the next 24-48 hours. * No lifting over 2 pounds (approximately a 1/2 gallon of milk) with the utilized arm for 24 hours. * No strenuous activity such as bowling or tennis for 3 days. * Keep the site of the procedure covered with a bandage for 24 hours. *You may shower the day after the procedure. Do not take a tub bath or submerge the puncture site in water for the next 3 days. *Do not operate any motorized equipment for 3 days. SPECIAL CARE INSTRUCTIONS: The site may be slightly bruised and sore following your procedure. Should any of the following occur, contact the Dr. who performed your procedure. 1. Redness/inflammation, swelling, chills, or fever, or colored drainage at procedure site within 3-7 days after your procedure. 2. Coldness, discoloration, ongoing numbness, severe pain, or swelling. Expect mild tingling of hand and tenderness at the puncture site for up to three days. If this persists beyond three days, or other symptoms develop, notify the Dr. who performed your procedure. BLEEDING: If the procedure site on your wrist begins to bleed, do not panic 1. Place 1 or 2 fingers firmly just slightly above the insertion site to stop the bleeding. You may be able to feel your pulse as you hold pressure. 2. Lift your finger after 5 minutes to see if the bleeding has stopped. 3. Once the bleeding has stopped, gently wipe the wrist area clean with a bandage. * If the bleeding from your wrist does not stop after 10 minutes, or if there is a large amount of bleeding or spurting, call 911 ([address] drive yourself to the hospital). SKIN IRRITATION: * You may experience some redness and/or swelling in the area where radiation was administered. If any skin irritation occurs, please contact your family physician. FOLLOW UP VISIT: Keep any scheduled doctor appointments. Pending Studies at Discharge: No Stand-Alone Forms: My [facility], Smoking Cessation Medications and DC Order Prescriptions: New isosorbide mononitrate 30 mg Tablet Extended Release 24 Hr 30 mg PO QAM Qty: 30 RF: 0 clopidogrel 75 mg Tablet 75 mg PO QAM Qty: 30 RF: 0 Continued calcium carbonate-vitamin D3 600 mg(1,500mg) -200 unit tablet 1 tab PO QAM RF: 0 nitroglycerin 0.4 mg tablet, sublingual 0.4 mg SL ONCE PRN (Reason: Chest Pain) Qty: 1 RF: 0 aspirin 81 mg tablet,delayed release (DR/EC) 81 mg PO Q2D Qty: 30 RF: 0 vitamin E (dl, acetate) 400 unit capsule 400 mg PO QAM RF: 0 prednisone 5 mg tablet 10 mg PO DAILY RF: 0 levothyroxine 75 mcg tablet 75 mcg PO QAM RF: 0 lisinopril 5 mg tablet 5 mg PO QAM RF: 0 metoprolol succinate 25 mg tablet extended release 24 hr 25 mg PO QAM RF: 0 rosuvastatin 20 mg tablet 20 mg PO QAM RF: 0 Discontinued sildenafil 100 mg tablet 100 mg PO DAILY PRN (Reason: sexual activity) Qty: 30 RF: 0 Discharge Orders: Discharge Order (Routine); Ordered 05/05/21 Ordered By: Car De La Fuente Admission Data Admit Date/Time: 05/03/21 19:02 Attending Provider: Car De La Fuente Admit Provider: Alvarez Cruz Primary Care Provider: Ilana Munguia Other Providers: Brice Spencer ; Frank Berry ; Mohinder Lance ; Mahad Butcher ; Willy Lopez ; Jonas Middleton ; Isael Hale Jr ; Bharati López ; Christel Crowe ; Jluis Huang ; Jluis Bernal ; Ruy Cagle ; Luis Loco ; Ara Webb ; Ariel Munoz ; Jesus Guerra Michael K. ; Car De La Fuente Other Interventions: Discharge Summary Assessment (RN) Last Done: 05/05/21 13:35 Coding Level of Care Code D/C Day Management >30 mins Diagnoses Non-ST elevation (NSTEMI) myocardial infarction I21.4 Hypothyroidism E03.9 Hypertension I10 Polymyalgia rheumatica M35.3 DVT prophylaxis Z29.9
[2021-05-06] MEDS ORDERED: predniSONE 1 MG TAB PO SCH (09:00)
== END 2021-05-05 15:43 | disposition home or self-care (01) | DRG 282 ==
LOC: ED 14:07 → SUATTDRO 19:02 → 2E 19:02